=== PATIENT | male | born 1955 | race American Indian/Alaskan Native ===

== ENCOUNTER 2020-09-09 18:26 | Emergency (ER) | payer MEDICARE ==
[2020-09-09 20:37] VITALS: BP 162/104
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
[2020-09-09 21:39] LABS: Basophils # (Auto) 0.1 K/mm3 (0.0-0.1); Basophils % (Auto) 1.3 % (0.0-1.8); Eosinophils # (Auto) 0.2 K/mm3 (0.0-0.4); Eosinophils % (Auto) 2.5 % (0.0-4.3); Hematocrit 46.4 % (35.5-45.6); Hemoglobin 15.4 gm/dl (11.8-15.2); Lymphocytes # (Auto) 2.3 K/mm3 (1.2-5.4); Lymphocytes % (Auto) 34.2 % (13.4-35.0); Mean Corpuscular HGB Conc 33 % (32-34); Mean Corpuscular Volume 87 fl (84-94); Monocytes # (Auto) 0.5 K/mm3 (0.0-0.8); Monocytes % (Auto) 8.2 % (0.0-7.3); Platelet Count 352 K/mm3 (140-440); Red Blood Count 5.33 M/mm3 (3.65-5.03); Red Cell Distribution Width 13.7 % (13.2-15.2)
--- NOTE | 2020-09-09 21:39 | XRay Report ---
RIGHT FOOT 3 VIEW(S) INDICATION / CLINICAL INFORMATION: toe wound and foot wound COMPARISON: None available. FINDINGS: BONES / JOINT(S): No acute fracture or subluxation. Cortical margins of each of the phalanges appears intact without radiographic evidence of osteomyelitis. Consider further evaluation as warranted. Mil d diffuse degenerative changes. Small retrocalcaneal enthesophyte. SOFT TISSUES: Significant vascular calcifications. ADDITIONAL FINDINGS: None. Signer Name: Kunal Lopez MD Signed: 09/09/2020 9:34 PM Workstation Name: [id number]
[2020-09-09 21:58] LABS: BUN/Creatinine Ratio 16; Blood Urea Nitrogen 16 mg/dL (9-20); Hemolysis Index 15
[2020-09-09] MEDS ORDERED: ACETAMINOPHEN W/CODEINE 300-30 MG TAB PO ONE (23:06)
[2020-09-09] MEDS ORDERED: IBUPROFEN 600 MG TAB PO ONE (23:06)
== END 2020-09-09 23:42 | disposition home or self-care (01) ==
LOC: ED 18:26
DX: S91.301A Unspecified open wound, right foot, initial encounter (principal); E11.65 Type 2 diabetes mellitus with hyperglycemia; J45.909 Unspecified asthma, uncomplicated; I10 Essential (primary) hypertension; E78.00 Pure hypercholesterolemia, unspecified; F12.90 Cannabis use, unspecified, uncomplicated; Z87.891 Personal history of nicotine dependence; Z79.899 Other long term (current) drug therapy; Z98.890 Other specified postprocedural states; X58.XXXA Exposure to other specified factors, initial encounter; Y93.89 Activity, other specified; Y92.89 Other specified places as the place of occurrence of the external cause; Y99.8 Other external cause status
CPT/HCPCS: 36415; 80048; 85025

== ENCOUNTER 2020-12-05 17:56 | Inpatient (IN) | payer MEDICARE ==
[2020-12-05] MEDS ORDERED: fentaNYL 100 MCG/2 ML INJ IV ONE (18:39)
[2020-12-05] MEDS ORDERED: ONDANSETRON 4 MG/2 ML INJ IV ONE (18:39)
[2020-12-05] MEDS ORDERED: SODIUM CHLORIDE 0.9% 1000 ML 1,000 ML IV ONE (18:40)
--- NOTE | 2020-12-05 18:45 | Emergency Department Report ---
HPI - General Chief Complaint: Abdominal Pain Time Seen by Provider: 12/05/20 18:31 - HPI HPI: Room 5 The patient is a 65-year-old male present with chief complaint of abdominal pain. Patient states he awakened this morning with epigastric abdominal pain described as sharp and burning in nature. Patient denies radiation. Patient states he had 5 episodes of nausea and vomiting. Patient denies diarrhea or fever. Patient denies any sick contacts. Patient states last thing he had to eat before going to sleep last night was a popsicle. Patient currently gives his pain a score of 8.5/10 ED Past Medical Hx - Past Medical History Hx Hypertension: Yes Hx Heart Attack/AMI: Yes Hx Diabetes: Yes Additional medical history: High cholesterol - Surgical History Hx Open Heart Surgery: Yes Additional Surgical History: leg stent, right BKA, CABG - Family History Family history: no significant - Social History Smoking Status: Never Smoker Substance Use Type: None (Denies illicit drug use) - Medications Home Medications: Home Medications Medication Instructions Recorded Confirmed Last Taken Type Chlorhexidine Gluconate 5 ml TP BID #120 liquid 09/09/20 Unknown Rx [Antiseptic Skin Cleanser] Sulfamethoxazole/Trimethoprim 1 each PO BID #20 tablet 09/09/20 Unknown Rx [Bactrim DS TAB] cephALEXin [Keflex] 500 mg PO Q8HR #30 cap 09/09/20 Unknown Rx ED Review of Systems ROS: Stated complaint: ABD PAIN/NAUSEA/VOMITING Other details as noted in HPI Constitutional: denies: fever Eyes: denies: eye pain ENT: denies: throat pain Respiratory: no symptoms reported Cardiovascular: denies: chest pain Endocrine: no symptoms reported Gastrointestinal: abdominal pain, nausea, vomiting. denies: diarrhea Genitourinary: denies: dysuria Musculoskeletal: denies: back pain Neurological: denies: headache Physical Exam - Physical Exam Physical Exam: GENERAL: The patient is well-developed well-nourished male lying on stretcher not appearing to be in acute distress. [] HEENT: Normocephalic. Atraumatic. Extraocular motions are intact. Patient has moist mucous membranes. NECK: Supple. Trachea midline CHEST/LUNGS: Clear to auscultation. There is no respiratory distress noted. HEART/CARDIOVASCULAR: Regular. There is no tachycardia. There is no gallop rub or murmur. ABDOMEN: Abdomen is soft, with mild tenderness to palpation in the midepigastric region only. There is no rebound or guarding. Patient has normal bowel sounds. There is no abdominal distention. SKIN: There is no rash. There is no edema. There is no diaphoresis. NEURO: The patient is awake, alert, and oriented. The patient is cooperative. The patient has no focal neurologic deficits. The patient has normal speech MUSCULOSKELETAL: There is no evidence of acute injury. ED Course - Reevaluation(s) Reevaluation #1: 12/05/20 21:33 Patient states his epigastric pain has resolved - Consultations Consultation #1: 12/05/20 21:32 Cardiology paged 12/05/20 21:[address] Asif- recommends initiating heparin. Will follow ED Medical Decision Making - Lab Data Result diagrams: 12/05/20 18:42 12/05/20 18:42 Laboratory Tests 12/05/20 12/05/20 12/05/20 18:16 18:42 18:42 WBC 4.5 RBC 4.18 Hgb 11.9 Hct 35.1 L MCV 84 MCH 28 MCHC 34 RDW 17.0 H Plt Count 286 Lymph % (Auto) 24.5 [place] % (Auto) 9.6 H Eos % (Auto) 3.8 Baso % (Auto) 2.1 H Lymph # (Auto) 1.1 L [place] # (Auto) 0.4 Eos # (Auto) 0.2 Baso # (Auto) 0.1 Seg Neutrophils % 60.0 Seg Neutrophils # 2.7 VBG pH Sodium 137 Potassium 4.1 Chloride 97.8 L Carbon Dioxide 25 Anion Gap 18 BUN 23 H Creatinine 1.1 Estimated GFR > 60 BUN/Creatinine Ratio 21 Glucose 151 H POC Glucose 135 H Calcium 9.7 Total Bilirubin 1.10 AST 144 H ALT 51 Alkaline Phosphatase 175 H Total Creatine Kinase 58 CK-MB (CK-2) 2.3 CK-MB (CK-2) Rel Index 3.9 Troponin T 0.048 H Total Protein 7.2 Albumin 3.3 L Albumin/Globulin Ratio 0.8 Triglycerides 97 Cholesterol 213 H LDL Cholesterol Direct 149 H HDL Cholesterol 55 Cholesterol/HDL Ratio 3.87 Lipase 25 12/05/20 18:42 WBC RBC Hgb Hct MCV MCH MCHC RDW Plt Count Lymph % (Auto) [place] % (Auto) Eos % (Auto) Baso % (Auto) Lymph # (Auto) [place] # (Auto) Eos # (Auto) Baso # (Auto) Seg Neutrophils % Seg Neutrophils # VBG pH 7.395 Sodium Potassium Chloride Carbon Dioxide Anion Gap BUN Creatinine Estimated GFR BUN/Creatinine Ratio Glucose POC Glucose Calcium Total Bilirubin AST ALT Alkaline Phosphatase Total Creatine Kinase CK-MB (CK-2) CK-MB (CK-2) Rel Index Troponin T Total Protein Albumin Albumin/Globulin Ratio Triglycerides Cholesterol LDL Cholesterol Direct HDL Cholesterol Cholesterol/HDL Ratio Lipase - EKG Data -: EKG Interpreted by Me EKG shows normal: sinus rhythm Rate: normal - Radiology Data Radiology results: report reviewed (CT abdomen pelvis), image reviewed (CT abdomen pelvis) [facility] [address] [place] [address] Cat Scan Report Signed Patient: LISSA OTERO MR#: [id number] : 1955 Acct:[id number] Age/Sex: 65 / M ADM Date: 12/05/20 Loc: ED Attending Dr: Ordering Physician: DANIELLE CORNELIUS MD Date of Service: 12/05/20 Procedure(s): CT abdomen pelvis w con Accession Number(s): [id number] cc: DANIELLE CORNELIUS MD CT ABDOMEN AND PELVIS WITH CONTRAST INDICATION: Epigastric pain nausea vomiting CONTRAST: 100 cc Omnipaque 300 IV COMPARISON: None available. All CT scans at this location are performed using CT dose reduction for ALARA by means of automated exposure control. NOTE: Resolution is decreased and artifact is introduced by the patient's size. FINDINGS: Lung bases show mild atelectatic changes. Mild interstitial edema is also possible in the lung bases bilaterally. No areas of consolidation are seen. Coronary artery calcifications are noted. No pneumoperitoneum is seen. A small peripheral hypodensity with probable marginal enhancement likely is a small hemangioma anteriorly in the right lobe of the liver at the dome of the diaphragm. This measures 9 mm in diameter. 5 mm indeterminate lesion is seen in the posterior segment of the right lobe. I see no abnormalities of the gallbladder, bile ducts, pancreas, adrenals, or spleen. Small right renal cyst is noted.. No urinary obstructive changes are noted in the upper tracts though the urinary bladder is mildly distended. No evidence of bowel obstruction is seen. Appendix appears within normal limits. Mild colonic diverticulosis is seen without evidence of diverticulitis. Rectosigmoid colon is difficult to evaluate due to lack of distention as is the descending colon but no definite inflammation is noted. No free fluid is seen. No focal inflammatory changes are noted. No lymphadenopathy is seen. Stomach is distended with fluid. IMPRESSION: 1. No definite acute abnormalities are seen in the abdomen or pelvis 2. Possible mild bibasilar pulmonary edema 3. Small indeterminate lesion in the liver which probably is a hemangioma. Recommend follow-up. Signer Name: Torrey Duong MD Signed: 12/05/2020 8:32 PM Workstation Name: [id number] Transcribed By: GJ Dictated By: Torrey Duong MD Electronically Authenticated By: Torrey Duong MD Signed Date/Time: 12/05/202031 DD/ 25 TD/TT: Print Cancel - Differential Diagnosis Gastritis, peptic ulcer disease, pancreatitis, small bowel obstruction, ACS Critical care attestation.: If time is entered above; I have spent that time in minutes in the direct care of this critically ill patient, excluding procedure time. ED Disposition Clinical Impression: Acute abdominal pain, Anginal equivalent, Elevated troponin, Non-STEMI (non-ST elevated myocardial infarction) Disposition: 09 OP ADMIT IP TO THIS HOSP Is pt being admited?: Yes Does the pt Need Aspirin: Yes Condition: Fair Instructions: Angina, [id number] Referrals: JULIO PHELPS MD [Primary Care Provider] - 3-5 Days FLORENTIN ESPINO MD [Staff Physician] - 3-5 Days (Dr. Espino is a animal husbandman. Please follow-up with him for further evaluation and for follow-up with your possible liver hemangioma seen on today's CAT scan) Time of Disposition: 21:44 (Hospitalist paged (Dr Denney)) Heart Score - HEART Score History: Moderately suspicious EKG: Non-specific Age: 45-65 Risk factors: > 3 risk factors or hx of atherosclerotic disease Troponin: 1-3x normal limit HEART Score: 6 - EKG Read Time Time EKG Completed: 20:12 EKG Read Time: 20:15
[2020-12-05 19:04] LABS: Basophils # (Auto) 0.1 K/mm3 (0.0-0.1); Basophils % (Auto) 2.1 % (0.0-1.8); Eosinophils # (Auto) 0.2 K/mm3 (0.0-0.4); Eosinophils % (Auto) 3.8 % (0.0-4.3); Hematocrit 35.1 % (35.5-45.6); Hemoglobin 11.9 gm/dl (11.8-15.2); Lymphocytes # (Auto) 1.1 K/mm3 (1.2-5.4); Lymphocytes % (Auto) 24.5 % (13.4-35.0); Mean Corpuscular HGB Conc 34 % (32-34); Mean Corpuscular Volume 84 fl (84-94); Monocytes # (Auto) 0.4 K/mm3 (0.0-0.8); Monocytes % (Auto) 9.6 % (0.0-7.3); Platelet Count 286 K/mm3 (140-440); Red Blood Count 4.18 M/mm3 (3.65-5.03)
[2020-12-05 19:21] LABS: Creatine Kinase MB 2.3 ng/mL (0.0-4.0)
[2020-12-05 19:22] LABS: Alanine Aminotransferase 51 units/L (7-56); Albumin 3.3 g/dL (3.9-5); BUN/Creatinine Ratio 21; Blood Urea Nitrogen 23 mg/dL (9-20); Calcium 9.7 mg/dL (8.4-10.2); Hemolysis Index 72
[2020-12-05 19:34] LABS: Chol/HDL Ratio 3.87 %; HDL Cholesterol 55 mg/dL (40-59); LDL Cholesterol,Direct 149 mg/dL (50-130)
--- NOTE | 2020-12-05 20:37 | Cat Scan Report ---
CT ABDOMEN AND PELVIS WITH CONTRAST INDICATION: Epigastric pain nausea vomiting CONTRAST: 100 cc Omnipaque 300 IV COMPARISON: None available. All CT scans at this location are performed using CT dose reduction for ALARA by means of automated e xposure control. NOTE: Resolution is decreased and artifact is introduced by the patient's size. FINDINGS: Lung bases show mild atelectatic changes. Mild interstitial edema is also possible in the l rajani bases bilaterally. No areas of consolidation are seen. Coronary artery calcifications are noted. No pneumoperitoneum is seen. A small peripheral hypodensity with probable marginal enhancement likely is a small hemangioma anteriorly in the right lobe of the liver at the dome of the diaphragm. This m easures 9 mm in diameter. 5 mm indeterminate lesion is seen in the posterior segment of the right lob e. I see no abnormalities of the gallbladder, bile ducts, pancreas, adrenals, or spleen. Small right risa al cyst is noted.. No urinary obstructive changes are noted in the upper tracts though the urinary bl adder is mildly distended. No evidence of bowel obstruction is seen. Appendix appears within normal l imits. Mild colonic diverticulosis is seen without evidence of diverticulitis. Rectosigmoid colon is difficult to evaluate due to lack of distention as is the descending colon but no definite inflammati on is noted. No free fluid is seen. No focal inflammatory changes are noted. No lymphadenopathy is se en. Stomach is distended with fluid. IMPRESSION: 1. No definite acute abnormalities are seen in the abdomen or pelvis 2. Possible mild bibasilar pulmonary edema 3. Small indeterminate lesion in the liver which probably is a hemangioma. Recommend follow-up. Signer Name: Torrey Duong MD Signed: 12/05/2020 8:32 PM Workstation Name: [id number]
[2020-12-05] MEDS ORDERED: NITROGLYCERIN 2% OINT 1 GM TP ONE (21:32)
[2020-12-05] MEDS ORDERED: ASPIRIN 325 MG TAB PO ONE (21:32)
[2020-12-05] MEDS ORDERED: HEPARIN 10,000 UNITS/10 ML VIAL IV PRN (21:39)
[2020-12-05] MEDS ORDERED: HEPARIN 10,000 UNITS/10 ML VIAL IV ONE (21:39)
[2020-12-05 21:59] LABS: Hematocrit 32.7 % (35.5-45.6); Hemoglobin 11.2 gm/dl (11.8-15.2)
[2020-12-05 22:09] LABS: INR 0.96 (0.87-1.13)
[2020-12-05 22:10] LABS: Partial Thromboplastin Time 23.8 Sec. (24.2-36.6)
[2020-12-05] MEDS: HEPARIN/ 0.45% NACL DRIP 25,000 UNIT/500 ML BAG IV SCH (22:16)
[2020-12-05] MEDS ORDERED: MORPHINE 2 MG/1 ML INJ IV PRN (22:29)
[2020-12-05] MEDS ORDERED: MAGNESIUM HYDROXIDE (MOM) ORAL LIQD UDC PO PRN (22:29)
[2020-12-05] MEDS ORDERED: DEXTROSE 50% IN WATER (25GM) 50 ML SYRINGE IV PRN (22:29)
[2020-12-05] MEDS ORDERED: ACETAMINOPHEN 325 MG TAB PO PRN (22:29)
[2020-12-05] MEDS ORDERED: ONDANSETRON 4 MG/2 ML INJ IV PRN (22:29)
[2020-12-05] MEDS ORDERED: MORPHINE 4 MG/1 ML INJ IV PRN (22:29)
--- NOTE | 2020-12-05 22:38 | History and Physical Report ---
History of Present Illness Date of examination: 12/05/20 Date of admission: 12/05/2020 Chief complaint: Abdominal pain History of present illness: 65-year-old -[place] male with known history of coronary artery disease status post CABG in the past, hypertension, hyperlipidemia, diabetes mellitus presenting to the emergency room today complaining of epigastric abdominal pain which is sharp and burning in nature and has been ongoing for the past 24 hours. On a scale of 10 pain was about 8-9 over 10 in severity. He has had a some associated nausea and vomiting. Denies any fever or chills, no headache or dizziness, no diaphoresis. Denies any radiation and pain. No known relieving or exacerbating factor. Work-up in the emergency room today troponin was elevated at 0.048. EKG did not show any acute abnormality. CT of the abdomen reveals possible mild bibasilar pulmonary edema, no definite acute abnormality seen in the abdomen and pelvis. Small indeterminate lesion in the liver which is probably a hemangioma. Follow-up recommended. [employer] [facility] on-call was consulted by the ER physician and recommendation was to commence patient on heparin drip. Patient is being admitted with angina equivalent. Past History Past Medical History: CAD, diabetes, hypertension, hyperlipidemia Past Surgical History: CABG, Other (Right BKA) Social history: no significant social history Family history: no significant family history Medications and Allergies Allergies Allergy/AdvReac Type Severity Reaction Status Date / Time No Known Allergies Allergy Verified 09/09/20 23:06 Home Medications Medication Instructions Recorded Confirmed Last Taken Type Chlorhexidine Gluconate 5 ml TP BID #120 liquid 09/09/20 Unknown Rx [Antiseptic Skin Cleanser] Sulfamethoxazole/Trimethoprim 1 each PO BID #20 tablet 09/09/20 Unknown Rx [Bactrim DS TAB] cephALEXin [Keflex] 500 mg PO Q8HR #30 cap 09/09/20 Unknown Rx Active Meds: Active Medications Acetaminophen (Acetaminophen 325 Mg Tab) 650 mg PO Q4H PRN PRN Reason: Pain MILD(1-3)/Fever >100.5/AMBROCIO Dextrose (Dextrose 50% In Water (25gm) 50 Ml Syringe) 50 ml IV Q30MIN PRN; Protocol PRN Reason: Hypoglycemia Heparin Sodium (Porcine) (Heparin 10,000 Units/10 Ml Vial) 3,400 unit 40 unit/kg (3400 unit) IV Q6H PRN PRN Reason: Anti-Xa Assay<0.1 units/ml Heparin Sodium/Sodium Chloride (Heparin/ 0.45% Nacl-25,000 Unit/500 Ml) 25,000 unit in 500 mls @ 20 mls/hr IV TITRATE BRITTANY; Protocol Last Admin: 12/05/20 22:16 Dose: 1,000 units/hr, 20 mls/hr Documented by: Magnesium Hydroxide (Magnesium Hydroxide (Mom) Oral Liqd Udc) 30 ml PO Q4H PRN PRN Reason: Constipation Morphine Sulfate (Morphine 2 Mg/1 Ml Inj) 2 mg IV Q4H PRN PRN Reason: Pain, Moderate (4-6) Morphine Sulfate (Morphine 4 Mg/1 Ml Inj) 4 mg IV Q4H PRN PRN Reason: Pain , Severe (7-10) Ondansetron HCl (Ondansetron 4 Mg/2 Ml Inj) 4 mg IV Q8H PRN PRN Reason: Nausea And Vomiting Sodium Chloride (Sodium Chloride 0.9% 10 Ml Flush Syringe) 10 ml IV BID BRITTANY Sodium Chloride (Sodium Chloride 0.9% 10 Ml Flush Syringe) 10 ml IV PRN PRN PRN Reason: LINE FLUSH Review of Systems Constitutional: no fever, no chills Ears, nose, mouth and throat: no nasal congestion, no sore throat Cardiovascular: no chest pain, no palpitations Respiratory: no cough, no shortness of breath Gastrointestinal: abdominal pain (Epigastric), nausea, vomiting Genitourinary Male: no dysuria, no hematuria, no flank pain, no nocturia Musculoskeletal: no neck pain, no low back pain Integumentary: no rash, no pruritis Neurological: no headaches, no confusion Psychiatric: no anxiety, no depression Endocrine: no polyphagia, no polydipsia, no polyuria, no nocturia Exam - Constitutional Vitals: Temp Pulse Resp BP Pulse Ox 98.3 F 99 H 16 134/64 100 12/05/20 19:32 12/05/20 22:18 12/05/20 20:29 12/05/20 22:18 12/05/20 19:32 General appearance: Present: no acute distress, well-nourished, obese - EENT Eyes: Present: PERRL, EOM intact. Absent: scleral icterus ENT: hearing intact, clear oral mucosa, dentition normal - Neck Neck: Present: supple, normal ROM - Respiratory Respiratory effort: normal Respiratory: bilateral: CTA - Cardiovascular Rhythm: regular Heart Sounds: Present: S1 & S2. Absent: gallop, systolic murmur, diastolic murmur, rub, click - Extremities Extremities: no ischemia, pulses intact, No edema, normal temperature, normal color, Full ROM Peripheral Pulses: within normal limits - Abdominal General gastrointestinal: Present: soft, non-tender, non-distended, normal bowel sounds. Absent: mass - Integumentary Integumentary: Present: clear, warm, dry. Absent: rash - Musculoskeletal Musculoskeletal: strength equal bilaterally, other (Right below knee amputation. Mikayla still in place on the stump. No open wound.) - Psychiatric Psychiatric: appropriate mood/affect, intact judgment & insight, memory intact, cooperative - Neurologic Neurologic: CNII-XII intact, no focal deficits, moves all extremities HEART Score - HEART Score History: Moderately suspicious EKG: Non-specific Age: 45-65 Risk factors: > 3 risk factors or hx of atherosclerotic disease Troponin: Troponin T 0.048 ng/mL (0.00-0.029) H 12/05/20 18:42 Troponin: 1-3x normal limit HEART Score: 6 Results - Labs CBC & Chem 7: 12/05/20 21:42 12/05/20 18:42 Labs: Abnormal lab results 12/05/20 12/05/20 12/05/20 Range/Units 18:16 18:42 18:42 Hgb (11.8-15.2) gm/dl Hct 35.1 L (35.5-45.6) % RDW 17.0 H (13.2-15.2) % [place] % (Auto) 9.6 H (0.0-7.3) % Baso % (Auto) 2.1 H (0.0-1.8) % Lymph # (Auto) 1.1 L (1.2-5.4) K/mm3 APTT (24.2-36.6) Sec. Chloride 97.8 L (98-107) mmol/L BUN 23 H (9-20) mg/dL Glucose 151 H (75-100) mg/dL POC Glucose 135 H (70-105) mg/dL AST 144 H (5-40) units/L Alkaline Phosphatase 175 H (35-129) units/L Troponin T 0.048 H (0.00-0.029) ng/mL Albumin 3.3 L (3.9-5) g/dL Cholesterol 213 H (50-199) mg/dL LDL Cholesterol Direct 149 H (50-130) mg/dL 12/05/20 12/05/20 Range/Units 21:42 21:42 Hgb 11.2 L (11.8-15.2) gm/dl Hct 32.7 L (35.5-45.6) % RDW (13.2-15.2) % [place] % (Auto) (0.0-7.3) % Baso % (Auto) (0.0-1.8) % Lymph # (Auto) (1.2-5.4) K/mm3 APTT 23.8 L (24.2-36.6) Sec. Chloride (98-107) mmol/L BUN (9-20) mg/dL Glucose (75-100) mg/dL POC Glucose (70-105) mg/dL AST (5-40) units/L Alkaline Phosphatase (35-129) units/L Troponin T (0.00-0.029) ng/mL Albumin (3.9-5) g/dL Cholesterol (50-199) mg/dL LDL Cholesterol Direct (50-130) mg/dL Assessment and Plan - Patient Problems (1) Non-STEMI (non-ST elevated myocardial infarction) Current Visit: Yes Status: Acute Plan to address problem: Patient admitted and placed on telemetry. We will check serial cardiac enzymes. Patient commenced on aspirin, sublingual nitroglycerin and IV morphine as needed for chest pain. Meanwhile patient scheduled for echocardiogram and stress test. We will request cardiology evaluation and recommendation. (2) Diabetes mellitus Current Visit: Yes Status: Acute Plan to address problem: We will monitor Accu-Cheks closely. (3) Hypertension Current Visit: Yes Status: Acute Plan to address problem: We will resume routine home medications and monitor vital signs closely. (4) Hyperlipidemia Current Visit: Yes Status: Acute Plan to address problem: We will continue only routine home medications and monitor lipid profile. (5) DVT prophylaxis Current Visit: Yes Status: Acute Plan to address problem: Patient currently on anticoagulation with heparin. (6) Full code status Current Visit: Yes Status: Acute Plan to address problem: Patient is a full code.
[2020-12-06] MEDS ORDERED: traMADol 50 MG TAB PO PRN (00:23)
[2020-12-06] MEDS ORDERED: ACETAMINOPHEN 325 MG TAB PO PRN (00:23)
[2020-12-06] MEDS ORDERED: MORPHINE 2 MG/1 ML INJ IV PRN (00:23)
[2020-12-06] MEDS ORDERED: NITROGLYCERIN 0.4 MG TAB SUBL SL PRN (00:23)
[2020-12-06 02:28] LABS: Bilirubin,Urine NEG (Negative); Blood,Urine NEG (Negative); Color,Urine Yellow (Yellow); WBC,Urine < 1.0 /HPF (0.0-6.0)
[2020-12-06 05:10] LABS: Basophils % (Auto) 1.2 % (0.0-1.8); Eosinophils # (Auto) 0.1 K/mm3 (0.0-0.4); Eosinophils % (Auto) 3.6 % (0.0-4.3); Hematocrit 31.5 % (35.5-45.6); Hemoglobin 10.5 gm/dl (11.8-15.2); Lymphocytes # (Auto) 1.8 K/mm3 (1.2-5.4); Lymphocytes % (Auto) 47.5 % (13.4-35.0); Mean Corpuscular HGB Conc 33 % (32-34); Mean Corpuscular Volume 84 fl (84-94); Monocytes # (Auto) 0.3 K/mm3 (0.0-0.8); Monocytes % (Auto) 9.3 % (0.0-7.3); Platelet Count 257 K/mm3 (140-440); Red Blood Count 3.74 M/mm3 (3.65-5.03); Red Cell Distribution Width 17.3 % (13.2-15.2)
[2020-12-06 05:28] LABS: BUN/Creatinine Ratio 18; Blood Urea Nitrogen 20 mg/dL (9-20); Hemolysis Index 0
--- NOTE | 2020-12-06 08:34 | Progress Note ---
Assessment and Plan Assessment and plan: NSTEMI Diabetes mellitus type 2 Hypertension Hyperlipidemia 12/06/2020. Patient with epigastric pain that may be anginal equivalent. CT scan of the abdomen pelvis negative. However, patient does have elevated troponin. Continue to follow serial cardiac isoenzymes. Stress test and echocardiogram ordered. Await cardiology evaluation. History Interval history: No new issues overnight Hospitalist Physical - Constitutional Vitals: Temp Pulse Resp BP Pulse Ox 98.2 F 94 H 18 126/73 97 12/06/20 05:00 12/06/20 05:00 12/06/20 05:00 12/06/20 05:00 12/06/20 05:00 General appearance: Present: no acute distress, well-nourished, obese - EENT Eyes: Present: PERRL, EOM intact ENT: hearing intact, clear oral mucosa, dentition normal - Neck Neck: Present: supple, normal ROM - Respiratory Respiratory effort: normal Respiratory: bilateral: CTA - Cardiovascular Rhythm: regular Heart Sounds: Present: S1 & S2. Absent: gallop, rub - Extremities Extremities: no ischemia, No edema, Full ROM - Abdominal General gastrointestinal: soft, non-tender, non-distended, normal bowel sounds - Integumentary Integumentary: Present: clear, warm, dry - Neurologic Neurologic: CNII-XII intact, moves all extremities HEART Score - HEART Score EKG: Non-specific Age: 45-65 Risk factors: > 3 risk factors or hx of atherosclerotic disease Troponin: Troponin T 0.081 ng/mL (0.00-0.029) H D 12/06/20 04:43 Troponin: 1-3x normal limit Results - Labs CBC & Chem 7: 12/06/20 04:43 12/06/20 04:43 Labs: Laboratory Last Values WBC 3.7 K/mm3 (4.5-11.0) L 12/06/20 04:43 RBC 3.74 M/mm3 (3.65-5.03) 12/06/20 04:43 Hgb 10.5 gm/dl (11.8-15.2) L 12/06/20 04:43 Hct 31.5 % (35.5-45.6) L 12/06/20 04:43 MCV 84 fl (84-94) 12/06/20 04:43 MCH 28 pg (28-32) 12/06/20 04:43 MCHC 33 % (32-34) 12/06/20 04:43 RDW 17.3 % (13.2-15.2) H 12/06/20 04:43 Plt Count 257 K/mm3 (140-440) 12/06/20 04:43 Lymph % (Auto) 47.5 % (13.4-35.0) H 12/06/20 04:43 [place] % (Auto) 9.3 % (0.0-7.3) H 12/06/20 04:43 Eos % (Auto) 3.6 % (0.0-4.3) 12/06/20 04:43 Baso % (Auto) 1.2 % (0.0-1.8) 12/06/20 04:43 Lymph # (Auto) 1.8 K/mm3 (1.2-5.4) 12/06/20 04:43 [place] # (Auto) 0.3 K/mm3 (0.0-0.8) 12/06/20 04:43 Eos # (Auto) 0.1 K/mm3 (0.0-0.4) 12/06/20 04:43 Baso # (Auto) 0.0 K/mm3 (0.0-0.1) 12/06/20 04:43 Seg Neutrophils % 38.4 % (40.0-70.0) L 12/06/20 04:43 Seg Neutrophils # 1.4 K/mm3 (1.8-7.7) L 12/06/20 04:43 PT 13.8 Sec. (12.2-14.9) 12/06/20 04:43 INR 1.00 (0.87-1.13) 12/06/20 04:43 APTT 23.8 Sec. (24.2-36.6) L 12/05/20 21:42 Heparin Anti-Xa Level 0.67 U.I./ml (0.3-0.7) 12/06/20 04:43 VBG pH 7.395 (7.320-7.420) 12/05/20 18:42 Sodium 139 mmol/L (137-145) 12/06/20 04:43 Potassium 3.5 mmol/L (3.6-5.0) L 12/06/20 04:43 Chloride 103.1 mmol/L (98-107) 12/06/20 04:43 Carbon Dioxide 27 mmol/L (22-30) 12/06/20 04:43 Anion Gap 12 mmol/L 12/06/20 04:43 BUN 20 mg/dL (9-20) 12/06/20 04:43 Creatinine 1.1 mg/dL (0.8-1.3) 12/06/20 04:43 Estimated GFR > 60 ml/min 12/06/20 04:43 BUN/Creatinine Ratio 18 % 12/06/20 04:43 Glucose 93 mg/dL (75-100) 12/06/20 04:43 POC Glucose 68 mg/dL (70-105) L 12/06/20 07:43 Calcium 9.0 mg/dL (8.4-10.2) 12/06/20 04:43 Total Bilirubin 1.10 mg/dL (0.1-1.2) 12/05/20 18:42 AST 144 units/L (5-40) H 12/05/20 18:42 ALT 51 units/L (7-56) 12/05/20 18:42 Alkaline Phosphatase 175 units/L (35-129) H 12/05/20 18:42 Total Creatine Kinase 58 units/L (55-170) 12/05/20 18:42 CK-MB (CK-2) 2.3 ng/mL (0.0-4.0) 12/05/20 18:42 CK-MB (CK-2) Rel Index 3.9 (0-4) 12/05/20 18:42 Troponin T 0.081 ng/mL (0.00-0.029) H D 12/06/20 04:43 Total Protein 7.2 g/dL (6.3-8.2) 12/05/20 18:42 Albumin 3.3 g/dL (3.9-5) L 12/05/20 18:42 Albumin/Globulin Ratio 0.8 % 12/05/20 18:42 Triglycerides 97 mg/dL (2-149) 12/05/20 18:42 Cholesterol 213 mg/dL (50-199) H 12/05/20 18:42 LDL Cholesterol Direct 149 mg/dL (50-130) H 12/05/20 18:42 HDL Cholesterol 55 mg/dL (40-59) 12/05/20 18:42 Cholesterol/HDL Ratio 3.87 % 12/05/20 18:42 Lipase 25 units/L (13-60) 12/05/20 18:42 Urine Color Yellow (Yellow) 12/06/20 02:14 Urine Turbidity Clear (Clear) 12/06/20 02:14 Urine pH 7.0 (5.0-7.0) 12/06/20 02:14 Ur Specific [place] 1.023 (1.003-1.030) 12/06/20 02:14 Urine Protein 100 mg/dl mg/dL (Negative) 12/06/20 02:14 Urine Glucose (UA) Neg mg/dL (Negative) 12/06/20 02:14 Urine Ketones Neg mg/dL (Negative) 12/06/20 02:14 Urine Blood Neg (Negative) 12/06/20 02:14 Urine Nitrite Neg (Negative) 12/06/20 02:14 Urine Bilirubin Neg (Negative) 12/06/20 02:14 Urine Urobilinogen 4.0 mg/dL (<2.0) 12/06/20 02:14 Ur Leukocyte Esterase Neg (Negative) 12/06/20 02:14 Urine WBC (Auto) < 1.0 /HPF (0.0-6.0) 12/06/20 02:14 Urine RBC (Auto) 2.0 /HPF (0.0-6.0) 12/06/20 02:14 U Epithel Cells (Auto) < 1.0 /HPF (0-13.0) 12/06/20 02:14 Ramirez/IV: Voiding Method Urinal Active Medications - Current Medications Current Medications: Generic Name Dose Route Start Last Admin Trade Name Freq PRN Reason Stop Dose Admin Acetaminophen 650 mg 12/05/20 22:29 Acetaminophen 325 Mg Tab PO Q4H PRN Pain MILD(1-3)/Fever >100.5/AMBROCIO Aspirin 325 mg 12/07/20 10:00 Aspirin Ec 325 Mg Tab PO QDAY BRITTANY Dextrose 0 ml 12/05/20 22:29 Dextrose 50% In Water (25gm) 50 Ml Syringe IV Q30MIN PRN Hypoglycemia Protocol Heparin Sodium (Porcine) 3,400 unit 12/05/20 21:39 Heparin 10,000 Units/10 Ml Vial 40 unit/kg (3400 unit) IV Q6H PRN Anti-Xa Assay<0.1 units/ml Heparin Sodium/Sodium Chloride 25,000 unit in 500 mls @ 20 mls/hr 12/05/20 22:00 12/06/20 05:27 Heparin/ 0.45% Nacl-25,000 Unit/500 Ml IV 1,000 units/hr TITRATE BRITTANY 20 mls/hr Titration Protocol 1,000 UNITS/HR Magnesium Hydroxide 30 ml 12/05/20 22:29 Magnesium Hydroxide (Mom) Oral Liqd Udc PO Q4H PRN Constipation Morphine Sulfate 2 mg 12/06/20 00:23 Morphine 2 Mg/1 Ml Inj IV Q5MIN PRN Chest Pain Nitroglycerin 0.4 mg 12/06/20 00:23 Nitroglycerin 0.4 Mg Tab Subl SL Q5M PRN Chest Pain Ondansetron HCl 4 mg 12/05/20 22:29 Ondansetron 4 Mg/2 Ml Inj IV Q8H PRN Nausea And Vomiting Sodium Chloride 10 ml 12/06/20 10:00 Sodium Chloride 0.9% 10 Ml Flush Syringe IV BID BRITTANY Sodium Chloride 10 ml 12/05/20 22:29 Sodium Chloride 0.9% 10 Ml Flush Syringe IV PRN PRN LINE FLUSH Tramadol HCl 50 mg 12/06/20 00:23 Tramadol 50 Mg Tab PO Q6H PRN Pain, Moderate (4-6)
--- NOTE | 2020-12-06 09:34 | Consultation ---
History of Present Illness Consult date: 12/06/20 Consult reason: elevated troponin History of present illness: Patient seen in echo lab. 65M with PMH of CAD s/p CABG 2006, HTN, HLD, and DM is admitted with epigastric pain and elevated troponin. Patient reports epigastric pain that started after he ate some food. No association with activity. Currently, he is symptom free. His prior symptoms at time of CABG included SOB and fatigue. He has not been regularly following up with sports director and has not had cath/stress test in years. Denies smoking or drug use. Workup notable for elevated troponin 0.048, 0.081. CT abd/pelvis with bibasilar pulmonary edema but no other significant findings. He is currently on heparin infusion. Past History Past Medical History: CAD, diabetes, hypertension, hyperlipidemia Past Surgical History: CABG, Other (Right BKA) Social history: no significant social history Family history: no significant family history Medications and Allergies Allergies Allergy/AdvReac Type Severity Reaction Status Date / Time No Known Allergies Allergy Verified 09/09/20 23:06 Home Medications Medication Instructions Recorded Confirmed Last Taken Type Chlorhexidine Gluconate 5 ml TP BID #120 liquid 09/09/20 Unknown Rx [Antiseptic Skin Cleanser] Sulfamethoxazole/Trimethoprim 1 each PO BID #20 tablet 09/09/20 Unknown Rx [Bactrim DS TAB] cephALEXin [Keflex] 500 mg PO Q8HR #30 cap 09/09/20 Unknown Rx Active Meds: Active Medications Acetaminophen (Acetaminophen 325 Mg Tab) 650 mg PO Q4H PRN PRN Reason: Pain MILD(1-3)/Fever >100.5/AMBROCIO Aspirin (Aspirin Ec 325 Mg Tab) 325 mg PO QDAY BRITTANY Dextrose (Dextrose 50% In Water (25gm) 50 Ml Syringe) 0 ml IV Q30MIN PRN; Protocol PRN Reason: Hypoglycemia Heparin Sodium (Porcine) (Heparin 10,000 Units/10 Ml Vial) 3,400 unit 40 unit/kg (3400 unit) IV Q6H PRN PRN Reason: Anti-Xa Assay<0.1 units/ml Heparin Sodium/Sodium Chloride (Heparin/ 0.45% Nacl-25,000 Unit/500 Ml) 25,000 unit in 500 mls @ 20 mls/hr IV TITRATE BRITTANY; Protocol Last Titration: 12/06/20 05:27 Dose: 1,000 units/hr, 20 mls/hr Documented by: Magnesium Hydroxide (Magnesium Hydroxide (Mom) Oral Liqd Udc) 30 ml PO Q4H PRN PRN Reason: Constipation Morphine Sulfate (Morphine 2 Mg/1 Ml Inj) 2 mg IV Q5MIN PRN PRN Reason: Chest Pain Nitroglycerin (Nitroglycerin 0.4 Mg Tab Subl) 0.4 mg SL Q5M PRN PRN Reason: Chest Pain Ondansetron HCl (Ondansetron 4 Mg/2 Ml Inj) 4 mg IV Q8H PRN PRN Reason: Nausea And Vomiting Sodium Chloride (Sodium Chloride 0.9% 10 Ml Flush Syringe) 10 ml IV BID BRITTANY Sodium Chloride (Sodium Chloride 0.9% 10 Ml Flush Syringe) 10 ml IV PRN PRN PRN Reason: LINE FLUSH Tramadol HCl (Tramadol 50 Mg Tab) 50 mg PO Q6H PRN PRN Reason: Pain, Moderate (4-6) Physical Examination Vital Signs Pulse Resp BP Pulse Ox 85 17 159/84 98 12/05/20 19:00 12/05/20 19:00 12/05/20 19:00 12/05/20 19:00 Narrative exam: Gen-NAD, comfortable HEENT-atraumatic, normocephalic, no scleral icterus Neck-supple, no JVD CV-RRR, no murmurs Abd-soft/nt/nd Ext-warm to touch, no edema Skin-no obvious rash, midline sternal scar well healed Neuro-alert and oriented, no gross focal deficits Results 12/06/20 04:43 12/06/20 04:43 Cardiac Enzymes 12/05/20 Range/Units 18:42 AST 144 H (5-40) units/L CK-MB (CK-2) 2.3 (0.0-4.0) ng/mL Coagulation 12/05/20 12/06/20 Range/Units 21:42 04:43 PT 13.4 13.8 (12.2-14.9) Sec. INR 0.96 1.00 (0.87-1.13) APTT 23.8 L (24.2-36.6) Sec. Lipids 12/05/20 Range/Units 18:42 Triglycerides 97 (2-149) mg/dL Cholesterol 213 H (50-199) mg/dL HDL Cholesterol 55 (40-59) mg/dL Cholesterol/HDL Ratio 3.87 % CBC 12/05/20 12/05/20 12/06/20 Range/Units 18:42 21:42 04:43 WBC 4.5 3.7 L (4.5-11.0) K/mm3 RBC 4.18 3.74 (3.65-5.03) M/mm3 Hgb 11.9 11.2 L 10.5 L (11.8-15.2) gm/dl Hct 35.1 L 32.7 L 31.5 L (35.5-45.6) % Plt Count 286 252 257 (140-440) K/mm3 Lymph # (Auto) 1.1 L 1.8 (1.2-5.4) K/mm3 [place] # (Auto) 0.4 0.3 (0.0-0.8) K/mm3 Eos # (Auto) 0.2 0.1 (0.0-0.4) K/mm3 Baso # (Auto) 0.1 0.0 (0.0-0.1) K/mm3 Comprehensive Metabolic Panel 12/05/20 12/06/20 Range/Units 18:42 04:43 Sodium 137 139 (137-145) mmol/L Potassium 4.1 3.5 L (3.6-5.0) mmol/L Chloride 97.8 L 103.1 (98-107) mmol/L Carbon Dioxide 25 27 (22-30) mmol/L BUN 23 H 20 (9-20) mg/dL Creatinine 1.1 1.1 (0.8-1.3) mg/dL Glucose 151 H 93 (75-100) mg/dL Calcium 9.7 9.0 (8.4-10.2) mg/dL AST 144 H (5-40) units/L ALT 51 (7-56) units/L Alkaline Phosphatase 175 H (35-129) units/L Total Protein 7.2 (6.3-8.2) g/dL Albumin 3.3 L (3.9-5) g/dL EKG - SR, left axis, inferior and anteroseptal Q waves Assessment and Plan #NSTEMI #CAD s/p CABG 2006 #HTN #HLD #DM -Continue to trend troponin to peak. -Echo pending. -Continue heparin and ASA. -Will start metoprolol. -Unable to start statin given elevated LFTs. -Please keep NPO at MN. Will likely need cardiac cath tomorrow AM.
[2020-12-06] MEDS: METOPROLOL TARTRATE 25 MG TAB PO SCH ×2 (09:52→22:08)
[2020-12-06] MEDS ORDERED: SODIUM CHLORIDE 0.9% 500 ML 500 ML IV SCH (12:00)
[2020-12-06] MEDS: HEPARIN/ 0.45% NACL DRIP 25,000 UNIT/500 ML BAG IV SCH (12:16)
--- NOTE | 2020-12-06 14:31 | Electrocardiograph Report ---
[facility] Test Date: 2020-12-05 Test Time: 20:12:03 Pat Name: LISSA OTERO Department: Room: A467 1 Gender: M Machine Captain: ADRIEN : 1955 Requested By: DANIELLE CORNELIUS Order Number: [id number] Reading MD: Maximilian Perez Measurements Intervals [place] Rate: 91 P: 63 KS: 158 QRS: -72 QRSD: 92 T: 57 QT: 381 QTc: 469 Interpretive Statements Sinus rhythm Inferior infarct, old Anterolateral infarct, old No previous ECG available for comparison Electronically Signed On 12-06-2020 14:31:37 EDT by Maximilian Perez
--- NOTE | 2020-12-06 14:36 | Electrocardiograph Report ---
[facility] Test Date: 2020-12-06 Test Time: 11:30:53 Pat Name: LISSA OTERO Department: Room: A467 1 Gender: M Director Of Online Education: DESTINY : 1955 Requested By: GARETT PEREZ Order Number: [id number] Reading MD: Maximilian Perez Measurements Intervals [place] Rate: 86 P: 60 WA: 167 QRS: -45 QRSD: 88 T: 87 QT: 379 QTc: 454 Interpretive Statements Sinus rhythm Inferior infarct, old Anterior infarct, old Compared to ECG 12/05/2020 20:12:03 No significant changes Electronically Signed On 12-06-2020 14:35:56 EDT by Maximilian Perez
--- NOTE | 2020-12-06 14:39 | XRay Report ---
CHEST 1 VIEW 1400 INDICATION / CLINICAL INFORMATION: Pulmonary edema COMPARISON: None available. FINDINGS: SUPPORT DEVICES: None HEART / MEDIASTINUM: No significant abnormality. LUNGS / PLEURA: Mild right basilar atelectatic changes are seen. No pneumothorax. ADDITIONAL FINDINGS: No significant additional findings. IMPRESSION: No significant acute abnormality Signer Name: Torrey Duong MD Signed: 12/06/2020 2:34 PM Workstation Name: [id number]
[2020-12-06 15:39] LABS: Alanine Aminotransferase 53 units/L (7-56); Albumin 3.1 g/dL (3.9-5)
[2020-12-06 15:51] LABS: Bilirubin,Direct < 0.2 mg/dL (0-0.2)
[2020-12-07] MEDS: HEPARIN/ 0.45% NACL DRIP 25,000 UNIT/500 ML BAG IV SCH (00:07)
[2020-12-07 05:04] LABS: Hematocrit 31.1 % (35.5-45.6); Hemoglobin 10.4 gm/dl (11.8-15.2); Mean Corpuscular HGB Conc 34 % (32-34); Mean Corpuscular Volume 85 fl (84-94); Platelet Count 252 K/mm3 (140-440); Red Blood Count 3.68 M/mm3 (3.65-5.03); Red Cell Distribution Width 17.2 % (13.2-15.2)
[2020-12-07 05:29] LABS: BUN/Creatinine Ratio 15; Blood Urea Nitrogen 16 mg/dL (9-20); Calcium 8.7 mg/dL (8.4-10.2); Hemolysis Index 2
[2020-12-07 06:51] LABS: Anisocytosis 1+; Platelet Estimate Consistent w Auto; Total Cells Counted 100
--- NOTE | 2020-12-07 08:23 | Progress Note ---
Assessment and Plan Assessment and plan: NSTEMI Acute on chronic systolic heart failure. Coronary artery disease. Patient is s/p CABG 2006. Diabetes mellitus type 2 Hypertension Hyperlipidemia 12/06/2020. Patient with epigastric pain that may be anginal equivalent. CT scan of the abdomen pelvis negative. However, patient does have elevated troponin. Continue to follow serial cardiac isoenzymes. Stress test and echocardiogram ordered. Await cardiology evaluation. 12/07/2020. Cardiology opted for cardiac catheterization for ischemic evaluation this a.m. Echocardiogram reveals left ventricle moderately dilated with systolic function severely decreased. Mild concentric left ventricular hypertrophy. LVEF is 25 to 30%. Continue heparin drip. Continue aspirin and beta-delmi. Consider diuretics and ARB/HARISH per cardiology recommendations. History Interval history: No new issues overnight Hospitalist Physical - Constitutional Vitals: Temp Pulse Resp BP Pulse Ox 98.1 F 87 18 143/71 94 12/07/20 08:04 12/07/20 08:04 12/07/20 08:04 12/07/20 08:04 12/07/20 08:04 General appearance: Present: no acute distress, well-nourished, obese - EENT Eyes: Present: PERRL, EOM intact ENT: hearing intact, clear oral mucosa, dentition normal - Neck Neck: Present: supple, normal ROM - Respiratory Respiratory effort: normal Respiratory: bilateral: CTA - Cardiovascular Rhythm: regular Heart Sounds: Present: S1 & S2. Absent: gallop, rub - Extremities Extremities: no ischemia, No edema, Full ROM - Abdominal General gastrointestinal: soft, non-tender, non-distended, normal bowel sounds - Integumentary Integumentary: Present: clear, warm, dry - Neurologic Neurologic: CNII-XII intact, moves all extremities HEART Score - HEART Score EKG: Non-specific Age: 45-65 Risk factors: > 3 risk factors or hx of atherosclerotic disease Troponin: Troponin T 0.081 ng/mL (0.00-0.029) H D 12/06/20 04:43 Troponin: 1-3x normal limit Results - Labs CBC & Chem 7: 12/07/20 04:22 12/07/20 04:22 Labs: Laboratory Last Values WBC 3.6 K/mm3 (4.5-11.0) L 12/07/20 04:22 RBC 3.68 M/mm3 (3.65-5.03) 12/07/20 04:22 Hgb 10.4 gm/dl (11.8-15.2) L 12/07/20 04:22 Hct 31.1 % (35.5-45.6) L 12/07/20 04:22 MCV 85 fl (84-94) 12/07/20 04:22 MCH 28 pg (28-32) 12/07/20 04:22 MCHC 34 % (32-34) 12/07/20 04:22 RDW 17.2 % (13.2-15.2) H 12/07/20 04:22 Plt Count 252 K/mm3 (140-440) 12/07/20 04:22 Lymph % (Auto) 47.5 % (13.4-35.0) H 12/06/20 04:43 Story % (Auto) 9.3 % (0.0-7.3) H 12/06/20 04:43 Eos % (Auto) 3.6 % (0.0-4.3) 12/06/20 04:43 Baso % (Auto) 1.2 % (0.0-1.8) 12/06/20 04:43 Lymph # (Auto) 1.8 K/mm3 (1.2-5.4) 12/06/20 04:43 Story # (Auto) 0.3 K/mm3 (0.0-0.8) 12/06/20 04:43 Eos # (Auto) 0.1 K/mm3 (0.0-0.4) 12/06/20 04:43 Baso # (Auto) 0.0 K/mm3 (0.0-0.1) 12/06/20 04:43 Add Manual Diff Complete 12/07/20 04:22 Total Counted 100 12/07/20 04:22 Seg Neutrophils % Former Hand 12/07/20 04:22 Seg Neuts % (Manual) 43.0 % (40.0-70.0) 12/07/20 04:22 Lymphocytes % (Manual) 43.0 % (13.4-35.0) H 12/07/20 04:22 Monocytes % (Manual) 3.0 % (0.0-7.3) 12/07/20 04:22 Eosinophils % (Manual) 11.0 % (0.0-4.3) H 12/07/20 04:22 Nucleated RBC % Not Reportable 12/07/20 04:22 Seg Neutrophils # 1.4 K/mm3 (1.8-7.7) L 12/06/20 04:43 Seg Neutrophils # Man 1.5 K/mm3 (1.8-7.7) L 12/07/20 04:22 Band Neutrophils # 0.0 K/mm3 12/07/20 04:22 Lymphocytes # (Manual) 1.5 K/mm3 (1.2-5.4) 12/07/20 04:22 Abs React Lymphs (Man) 0.0 K/mm3 12/07/20 04:22 Monocytes # (Manual) 0.1 K/mm3 (0.0-0.8) 12/07/20 04:22 Eosinophils # (Manual) 0.4 K/mm3 (0.0-0.4) 12/07/20 04:22 Basophils # (Manual) 0.0 K/mm3 (0.0-0.1) 12/07/20 04:22 Metamyelocytes # 0.0 K/mm3 12/07/20 04:22 Myelocytes # 0.0 K/mm3 12/07/20 04:22 Promyelocytes # 0.0 K/mm3 12/07/20 04:22 Blast Cells # 0.0 K/mm3 12/07/20 04:22 WBC Morphology Not Reportable 12/07/20 04:22 Hypersegmented Neuts Not Reportable 12/07/20 04:22 Hyposegmented Neuts Not Reportable 12/07/20 04:22 Hypogranular Neuts Not Reportable 12/07/20 04:22 Smudge Cells Not Reportable 12/07/20 04:22 Toxic Granulation Not Reportable 12/07/20 04:22 Toxic Vacuolation Not Reportable 12/07/20 04:22 Dohle Bodies Not Reportable 12/07/20 04:22 Pelger-Huet Anomaly Not Reportable 12/07/20 04:22 Jacky Rods Not Reportable 12/07/20 04:22 Platelet Estimate Consistent w auto 12/07/20 04:22 Clumped Platelets Not Reportable 12/07/20 04:22 Plt Clumps, EDTA Not Reportable 12/07/20 04:22 Large Platelets Not Reportable 12/07/20 04:22 Giant Platelets Not Reportable 12/07/20 04:22 Platelet Satelliting Not Reportable 12/07/20 04:22 Plt Morphology Comment Not Reportable 12/07/20 04:22 RBC Morphology Not Reportable 12/07/20 04:22 Dimorphic RBCs Not Reportable 12/07/20 04:22 Polychromasia Not Reportable 12/07/20 04:22 Hypochromasia Not Reportable 12/07/20 04:22 Poikilocytosis Not Reportable 12/07/20 04:22 Anisocytosis 1+ 12/07/20 04:22 Microcytosis Not Reportable 12/07/20 04:22 Macrocytosis Not Reportable 12/07/20 04:22 Spherocytes Not Reportable 12/07/20 04:22 Pappenheimer Bodies Not Reportable 12/07/20 04:22 Sickle Cells Not Reportable 12/07/20 04:22 Target Cells Not Reportable 12/07/20 04:22 Tear Drop Cells Not Reportable 12/07/20 04:22 Ovalocytes Not Reportable 12/07/20 04:22 Helmet Cells Not Reportable 12/07/20 04:22 Torres-Dean Bodies Not Reportable 12/07/20 04:22 [place] Rings Not Reportable 12/07/20 04:22 Danielson Cells Not Reportable 12/07/20 04:22 Bite Cells Not Reportable 12/07/20 04:22 Crenated Cell Not Reportable 12/07/20 04:22 Elliptocytes Not Reportable 12/07/20 04:22 Acanthocytes (Spur) Not Reportable 12/07/20 04:22 Rouleaux Not Reportable 12/07/20 04:22 Hemoglobin C Crystals Not Reportable 12/07/20 04:22 Schistocytes Not Reportable 12/07/20 04:22 Malaria parasites Not Reportable 12/07/20 04:22 Jean-Claude Bodies Not Reportable 12/07/20 04:22 Hem Pathologist Commnt No 12/07/20 04:22 PT 13.8 Sec. (12.2-14.9) 12/06/20 04:43 INR 1.00 (0.87-1.13) 12/06/20 04:43 APTT 23.8 Sec. (24.2-36.6) L 12/05/20 21:42 Heparin Anti-Xa Level 0.60 U.I./ml (0.3-0.7) 12/06/20 17:48 VBG pH 7.395 (7.320-7.420) 12/05/20 18:42 Sodium 135 mmol/L (137-145) L 12/07/20 04:22 Potassium 3.8 mmol/L (3.6-5.0) 12/07/20 04:22 Chloride 102.1 mmol/L (98-107) 12/07/20 04:22 Carbon Dioxide 22 mmol/L (22-30) 12/07/20 04:22 Anion Gap 15 mmol/L 12/07/20 04:22 BUN 16 mg/dL (9-20) 12/07/20 04:22 Creatinine 1.1 mg/dL (0.8-1.3) 12/07/20 04:22 Estimated GFR > 60 ml/min 12/07/20 04:22 BUN/Creatinine Ratio 15 % 12/07/20 04:22 Glucose 211 mg/dL (75-100) H 12/07/20 04:22 POC Glucose 230 mg/dL (70-105) H 12/06/20 23:35 Calcium 8.7 mg/dL (8.4-10.2) 12/07/20 04:22 Total Bilirubin 0.30 mg/dL (0.1-1.2) 12/06/20 04:43 Direct Bilirubin < 0.2 mg/dL (0-0.2) 12/06/20 04:43 Indirect Bilirubin 0.1 mg/dL 12/06/20 04:43 AST 70 units/L (5-40) H 12/06/20 04:43 ALT 53 units/L (7-56) 12/06/20 04:43 Alkaline Phosphatase 165 units/L (35-129) H 12/06/20 04:43 Total Creatine Kinase 58 units/L (55-170) 12/05/20 18:42 CK-MB (CK-2) 2.3 ng/mL (0.0-4.0) 12/05/20 18:42 CK-MB (CK-2) Rel Index 3.9 (0-4) 12/05/20 18:42 Troponin T 0.081 ng/mL (0.00-0.029) H D 12/06/20 04:43 Total Protein 6.5 g/dL (6.3-8.2) 12/06/20 04:43 Albumin 3.1 g/dL (3.9-5) L 12/06/20 04:43 Albumin/Globulin Ratio 0.9 % 12/06/20 04:43 Triglycerides 97 mg/dL (2-149) 12/05/20 18:42 Cholesterol 213 mg/dL (50-199) H 12/05/20 18:42 LDL Cholesterol Direct 149 mg/dL (50-130) H 12/05/20 18:42 HDL Cholesterol 55 mg/dL (40-59) 12/05/20 18:42 Cholesterol/HDL Ratio 3.87 % 12/05/20 18:42 Lipase 28 units/L (13-60) 12/06/20 11:10 Urine Color Yellow (Yellow) 12/06/20 02:14 Urine Turbidity Clear (Clear) 12/06/20 02:14 Urine pH 7.0 (5.0-7.0) 12/06/20 02:14 Ur Specific [place] 1.023 (1.003-1.030) 12/06/20 02:14 Urine Protein 100 mg/dl mg/dL (Negative) 12/06/20 02:14 Urine Glucose (UA) Neg mg/dL (Negative) 12/06/20 02:14 Urine Ketones Neg mg/dL (Negative) 12/06/20 02:14 Urine Blood Neg (Negative) 12/06/20 02:14 Urine Nitrite Neg (Negative) 12/06/20 02:14 Urine Bilirubin Neg (Negative) 12/06/20 02:14 Urine Urobilinogen 4.0 mg/dL (<2.0) 12/06/20 02:14 Ur Leukocyte Esterase Neg (Negative) 12/06/20 02:14 Urine WBC (Auto) < 1.0 /HPF (0.0-6.0) 12/06/20 02:14 Urine RBC (Auto) 2.0 /HPF (0.0-6.0) 12/06/20 02:14 U Epithel Cells (Auto) < 1.0 /HPF (0-13.0) 12/06/20 02:14 Ramirez/IV: Voiding Method Urinal Active Medications - Current Medications Current Medications: Generic Name Dose Route Start Last Admin Trade Name Freq PRN Reason Stop Dose Admin Acetaminophen 650 mg 12/05/20 22:29 Acetaminophen 325 Mg Tab PO Q4H PRN Pain MILD(1-3)/Fever >100.5/AMBROCIO Aspirin 325 mg 12/07/20 10:00 Aspirin Ec 325 Mg Tab PO QDAY BRITTANY Dextrose 0 ml 12/05/20 22:29 Dextrose 50% In Water (25gm) 50 Ml Syringe IV Q30MIN PRN Hypoglycemia Protocol Heparin Sodium (Porcine) 3,400 unit 12/05/20 21:39 Heparin 10,000 Units/10 Ml Vial 40 unit/kg (3400 unit) IV Q6H PRN Anti-Xa Assay<0.1 units/ml Heparin Sodium/Sodium Chloride 25,000 unit in 500 mls @ 20 mls/hr 12/05/20 22:00 12/07/20 00:07 Heparin/ 0.45% Nacl-25,000 Unit/500 Ml IV 900 units/hr TITRATE BRITTANY 18 mls/hr Administration Protocol 1,000 UNITS/HR Magnesium Hydroxide 30 ml 12/05/20 22:29 Magnesium Hydroxide (Mom) Oral Liqd Udc PO Q4H PRN Constipation Metoprolol Tartrate 25 mg 12/06/20 10:00 12/06/20 22:08 Metoprolol Tartrate 25 Mg Tab PO 25 mg BID BRITTANY Administration Morphine Sulfate 2 mg 12/06/20 00:23 Morphine 2 Mg/1 Ml Inj IV Q5MIN PRN Chest Pain Nitroglycerin 0.4 mg 12/06/20 00:23 Nitroglycerin 0.4 Mg Tab Subl SL Q5M PRN Chest Pain Ondansetron HCl 4 mg 12/05/20 22:29 Ondansetron 4 Mg/2 Ml Inj IV Q8H PRN Nausea And Vomiting Sodium Chloride 10 ml 12/06/20 10:00 12/06/20 22:08 Sodium Chloride 0.9% 10 Ml Flush Syringe IV 10 ml BID BRITTANY Administration Sodium Chloride 10 ml 12/05/20 22:29 Sodium Chloride 0.9% 10 Ml Flush Syringe IV PRN PRN LINE FLUSH Tramadol HCl 50 mg 12/06/20 00:23 Tramadol 50 Mg Tab PO Q6H PRN Pain, Moderate (4-6) Nutrition/Malnutrition Assess - Dietary Evaluation Nutrition/Malnutrition Findings: Nutrition Notes Start: 12/06/20 11:54 Freq: Status: Active Protocol: Document 12/06/20 11:54 RAMA (Rec: 12/06/20 12:04 RAMA [id number]) Nutrition Notes Need for Assessment generated from: MD Order,Education Initial or Follow up Assessment Current Diagnosis Coronary Artery Disease, Diabetes,Hypertension, Hyperlipidemia Other Pertinent Diagnosis NSTEMI, R BKA Current Diet Cardiac Labs/Tests BG 185 Pertinent Medications Reviewed Height 5 ft Weight 81.36 kg Usual Body Weight 90.9 kg [place] Body Weight (kg) 48.18 BMI 35.0 Intake Prior to Admission Fair Weight change and time frame 10.5% wt loss in 1 month. Pt unsure of why he would have lost 21lbs in one month. Weight Status Obese Subjective/Other Information MD consult for diet education. Spoke with pt and son about limiting sodium and saturated fats. All questions answered. Pt reports decreased appetite for 3-4 days. Pt ate <50% of breakfast. Burn Absent Trauma Absent GI Symptoms None Current % PO Poor (25-49%) Minimum of two criteria No Interpretation of Weight Loss (severe) >5% in 1 month #1 Nutrition Diagnosis Inadequate oral intake Etiology acute illness As Evidenced by Signs and Symptoms pt with N/V for 3-4 days Is patient on ventilator? No Is Patient Ambulatory and/or Out of Bed No REE-([facility]-confined to bed) 1740.588 Kcal/Kg value to use for calculation 18 Approximate Energy Requirements Using 1464 kcal/Kg Calculation Used for Recommendations Kcal/kg Additional Notes Protein: (1-1.2g/kg AdjBW: 60kg) 60-73g Fluid: 1 ml/kcal Nutrition Intervention Change Diet Order: Add consistent cho Add Supplement/Snack (indicate name/kcal Glucerna BID /protein ) Provides kCal: 440 Provides Protein (gm) 20 Goal #1 Meet at least 75% of energy and protein needs via PO and ONS Anticipated Discharge Needs: Cardiac, consistent CHO Follow-Up By: 12/08/20 Additional Comments FU for intakes and ONS tolerance
[2020-12-07] MEDS ORDERED: ASPIRIN EC 325 MG TAB PO SCH (10:00)
--- NOTE | 2020-12-07 10:39 | Electrocardiograph Report ---
[facility] Test Date: 2020-12-07 Test Time: 06:36:54 Pat Name: LISSA OTERO Department: Room: A467 1 Gender: M [employer] Cl[employer] Man: DESTINY : 1955 Requested By: SEBASTIÁN ELY Order Number: [id number] Reading MD: Isaac Wynn Measurements Intervals [place] Rate: 85 P: 56 KS: 172 QRS: -34 QRSD: 88 T: 87 QT: 375 QTc: 446 Interpretive Statements Sinus rhythm Left axis deviation Anterior infarct, old Compared to ECG 12/06/2020 11:30:53 Left-axis deviation now present Myocardial infarct finding still present Electronically Signed On 12-07-2020 10:39:22 EDT by Isaac Wynn
[2020-12-07] MEDS: METOPROLOL TARTRATE 25 MG TAB PO SCH ×2 (11:21→22:21)
--- NOTE | 2020-12-07 12:20 | Progress Note ---
Assessment and Plan - Patient Problems (1) Coronary artery disease Current Visit: Yes Status: Acute Plan to address problem: Patient has history of coronary artery disease with 15-year-old coronary bypass, but current symptoms of abdominal pain associated with elevated liver enzymes suggest a GI origin to his complaints. CT scan of the abdomen reported possible edema at the bases of the lungs, but a chest x-ray ordered by me reports no pulmonary edema but instead atelectasis at the lung bases. We will hold off on invasive cardiac evaluation at this time, and trend the liver enzymes, recommend consider ultrasound assessment of the gallbladder and liver. After optimal GI work-up, we can contemplate further cardiac ischemic work-up as indicated. (2) Ischemic cardiomyopathy Current Visit: Yes Status: Acute Plan to address problem: The patient's echocardiogram shows left ventricular dysfunction, with ejection fraction 25 to 30%, chronicity uncertain in this patient with multivessel disease and 15-year-old bypass grafts. We will start guideline directed medical therapy, and contemplate further ischemic cardiac work-up as indicated after current GI pathology is resolved. Subjective Date of service: 12/07/20 Interval history: 65-year-old man who presented to the hospital with epigastric and upper abdominal pain nausea and vomiting. He reports that his symptoms were postprandial. Laboratory exam in the hospital revealed elevation of his liver transaminases, but an abdominal CT scan was reported negative. Part of his laboratory profile measured on arrival to the emergency room included troponin level that was mildly elevated at 0.04-0.08. This prompted a cardiac consultation. The patient had no chest pain, no shortness of breath, no palpitations and no lower extremity edema. ECG was normal sinus rhythm with an old anteroseptal myocardial infarction, and nonspecific intraventricular conduction delay but no acute ST or T wave changes. He does not have an extensive prior cardiac and vascular history. In 2006, he underwent coronary artery bypass at [facility] in [place], although he is unsure if was the three-way or quadruple bypass. Since then, his cardiac follow-up has been inconsistent. 2 months ago, he underwent below-knee amputation of the right leg at [facility] for progressive vascular disease, my review of his records from [place] did not show any significant preoperative cardiac assessment. At this time, the patient is comfortable on his bed in the medical floor, looks and feels better in no acute distress. His telemetry has shown a stable sinus rhythm, no dysrhythmias reported. Objective Vital Signs Temp Pulse Resp BP Pulse Ox 12/07/20 12:01 97.2 F L 78 18 140/68 97 12/07/20 08:04 98.1 F 87 18 143/71 94 12/07/20 04:57 98.1 F 83 20 132/69 98 12/06/20 22:08 89 142/65 12/06/20 21:20 98.2 F 89 20 142/65 97 12/06/20 16:03 98.4 F 85 20 143/70 94 12/06/20 12:22 18 - Physical Examination General: No Apparent Distress HEENT: Positive: PERRL Neck: Positive: neck supple Cardiac: Positive: Reg Rate and Rhythm Lungs: Positive: Decreased Breath Sounds Neuro: Positive: Grossly Intact Abdomen: Positive: Soft Skin: Positive: Clear Extremities: Present: Other (Status post right below-knee amputation). Absent: edema - Labs and Meds Cardiac Enzymes 12/06/20 Range/Units 04:43 AST 70 H (5-40) units/L CBC 12/07/20 Range/Units 04:22 WBC 3.6 L (4.5-11.0) K/mm3 RBC 3.68 (3.65-5.03) M/mm3 Hgb 10.4 L (11.8-15.2) gm/dl Hct 31.1 L (35.5-45.6) % Plt Count 252 (140-440) K/mm3 Comprehensive Metabolic Panel 12/06/20 12/07/20 Range/Units 04:43 04:22 Sodium 135 L (137-145) mmol/L Potassium 3.8 (3.6-5.0) mmol/L Chloride 102.1 (98-107) mmol/L Carbon Dioxide 22 (22-30) mmol/L BUN 16 (9-20) mg/dL Creatinine 1.1 (0.8-1.3) mg/dL Glucose 211 H (75-100) mg/dL Calcium 8.7 (8.4-10.2) mg/dL Direct Bilirubin < 0.2 (0-0.2) mg/dL Indirect Bilirubin 0.1 mg/dL AST 70 H (5-40) units/L ALT 53 (7-56) units/L Alkaline Phosphatase 165 H (35-129) units/L Total Protein 6.5 (6.3-8.2) g/dL Albumin 3.1 L (3.9-5) g/dL
[2020-12-07] MEDS: SPIRONOLACTONE 25 MG TAB PO SCH (17:14)
[2020-12-07] MEDS: LISINOPRIL 10 MG TAB PO SCH (17:14)
[2020-12-07] MEDS: ENOXAPARIN 40 MG/0.4 ML INJ SUB-Q SCH (22:22)
[2020-12-08 07:05] LABS: Basophils # (Auto) 0.1 K/mm3 (0.0-0.1); Basophils % (Auto) 1.5 % (0.0-1.8); Eosinophils # (Auto) 0.3 K/mm3 (0.0-0.4); Eosinophils % (Auto) 8.6 % (0.0-4.3); Hemoglobin 10.4 gm/dl (11.8-15.2); Lymphocytes # (Auto) 1.6 K/mm3 (1.2-5.4); Lymphocytes % (Auto) 44.6 % (13.4-35.0); Mean Corpuscular HGB Conc 33 % (32-34); Mean Corpuscular Volume 84 fl (84-94); Monocytes # (Auto) 0.3 K/mm3 (0.0-0.8); Monocytes % (Auto) 9.7 % (0.0-7.3); Platelet Count 261 K/mm3 (140-440); Red Blood Count 3.68 M/mm3 (3.65-5.03); Red Cell Distribution Width 17.1 % (13.2-15.2)
[2020-12-08 07:07] LABS: BUN/Creatinine Ratio 14; Blood Urea Nitrogen 11 mg/dL (9-20); Calcium 9.2 mg/dL (8.4-10.2); Hemolysis Index 4
[2020-12-08] MEDS ORDERED: REGADENOSON 0.4 MG/5 ML INJ IV ONE (07:25)
[2020-12-08 09:53] LABS: Alanine Aminotransferase 20 units/L (7-56)
[2020-12-08] MEDS: ENOXAPARIN 40 MG/0.4 ML INJ SUB-Q SCH ×2 (09:53→21:45)
[2020-12-08 10:04] LABS: Bilirubin,Direct < 0.2 mg/dL (0-0.2)
--- NOTE | 2020-12-08 10:13 | Ultrasound Report ---
ULTRASOUND ABDOMEN, LIMITED INDICATION / CLINICAL INFORMATION: Elevated LFT. COMPARISON: None available. FINDINGS: PANCREAS: Not well visualized LIVER: Several echogenic foci suggest calcified granulomas measuring 5 mm. Left hepatic lobe is not w ell seen GALLBLADDER: Gallbladder wall is upper limits of normal measuring 3 mm. No pericholecystic fluid BILE DUCTS: No significant abnormality. Common bile duct not well seen or measured FREE FLUID: None. ADDITIONAL FINDINGS: None. IMPRESSION: 1. No significant sonographic abnormality of the right upper quadrant. Signer Name: Yovany Henry MD Signed: 12/08/2020 10:09 AM Workstation Name: [id number]
--- NOTE | 2020-12-08 11:09 | Progress Note ---
Assessment and Plan Assessment and plan: NSTEMI Acute on chronic systolic heart failure. Coronary artery disease. Patient is s/p CABG 2006. Diabetes mellitus type 2 Hypertension Hyperlipidemia 12/06/2020. Patient with epigastric pain that may be anginal equivalent. CT scan of the abdomen pelvis negative. However, patient does have elevated troponin. Continue to follow serial cardiac isoenzymes. Stress test and echocardiogram ordered. Await cardiology evaluation. 12/07/2020. Cardiology opted for cardiac catheterization for ischemic evaluation this a.m. Echocardiogram reveals left ventricle moderately dilated with systolic function severely decreased. Mild concentric left ventricular hypertrophy. LVEF is 25 to 30%. Continue heparin drip. Continue aspirin and beta-delmi. Consider diuretics and ARB/HARISH per cardiology recommendations. 12/08/2020 Patient with NSTEMI. He was evaluated by cardiology and he recommends GI workup because of elevated LFT. I ordered US liver and gallbladder and consulted GI. Liver and Gall bladder Ultrasound unremarkable. LFTs back to normal today. History Interval history: Patient presented with epigastric abdominal pain Hospitalist Physical - Physical exam Narrative exam: Gen: Not in acute distress, obese, lying in bed HEENT: Normocephalic, atraumatic Neck : supple, no JVD Heart:S1 and S2 reg, no murmurs, rubs or gallop Lungs: clear to auscultation bilaterally, no wheeze Abd: Soft , NT, non distended, normal bowel sounds Ext: No edema, no clubbing, no cyanosis Neuro: Awake, alert, - Constitutional Vitals: Temp Pulse Resp BP Pulse Ox 98.1 F 89 20 175/92 97 12/08/20 07:51 12/08/20 07:51 12/08/20 07:51 12/08/20 07:51 12/08/20 07:51 General appearance: Present: no acute distress, well-nourished, obese HEART Score - HEART Score EKG: Non-specific Age: 45-65 Risk factors: > 3 risk factors or hx of atherosclerotic disease Troponin: Troponin T 0.081 ng/mL (0.00-0.029) H D 12/06/20 04:43 Troponin: 1-3x normal limit Results - Labs CBC & Chem 7: 12/08/20 04:51 12/08/20 04:51 Labs: Laboratory Last Values WBC 3.6 K/mm3 (4.5-11.0) L 12/08/20 04:51 RBC 3.68 M/mm3 (3.65-5.03) 12/08/20 04:51 Hgb 10.4 gm/dl (11.8-15.2) L 12/08/20 04:51 Hct 31.0 % (35.5-45.6) L 12/08/20 04:51 MCV 84 fl (84-94) 12/08/20 04:51 MCH 28 pg (28-32) 12/08/20 04:51 MCHC 33 % (32-34) 12/08/20 04:51 RDW 17.1 % (13.2-15.2) H 12/08/20 04:51 Plt Count 261 K/mm3 (140-440) 12/08/20 04:51 Lymph % (Auto) 44.6 % (13.4-35.0) H 12/08/20 04:51 Garrard % (Auto) 9.7 % (0.0-7.3) H 12/08/20 04:51 Eos % (Auto) 8.6 % (0.0-4.3) H 12/08/20 04:51 Baso % (Auto) 1.5 % (0.0-1.8) 12/08/20 04:51 Lymph # (Auto) 1.6 K/mm3 (1.2-5.4) 12/08/20 04:51 G[place]ard # (Auto) 0.3 K/mm3 (0.0-0.8) 12/08/20 04:51 Eos # (Auto) 0.3 K/mm3 (0.0-0.4) 12/08/20 04:51 Baso # (Auto) 0.1 K/mm3 (0.0-0.1) 12/08/20 04:51 Add Manual Diff Complete 12/07/20 04:22 Total Counted 100 12/07/20 04:22 Seg Neutrophils % 35.6 % (40.0-70.0) L 12/08/20 04:51 Seg Neuts % (Manual) 43.0 % (40.0-70.0) 12/07/20 04:22 Lymphocytes % (Manual) 43.0 % (13.4-35.0) H 12/07/20 04:22 Monocytes % (Manual) 3.0 % (0.0-7.3) 12/07/20 04:22 Eosinophils % (Manual) 11.0 % (0.0-4.3) H 12/07/20 04:22 Nucleated RBC % Not Reportable 12/07/20 04:22 Seg Neutrophils # 1.3 K/mm3 (1.8-7.7) L 12/08/20 04:51 Seg Neutrophils # Man 1.5 K/mm3 (1.8-7.7) L 12/07/20 04:22 Band Neutrophils # 0.0 K/mm3 12/07/20 04:22 Lymphocytes # (Manual) 1.5 K/mm3 (1.2-5.4) 12/07/20 04:22 Abs React Lymphs (Man) 0.0 K/mm3 12/07/20 04:22 Monocytes # (Manual) 0.1 K/mm3 (0.0-0.8) 12/07/20 04:22 Eosinophils # (Manual) 0.4 K/mm3 (0.0-0.4) 12/07/20 04:22 Basophils # (Manual) 0.0 K/mm3 (0.0-0.1) 12/07/20 04:22 Metamyelocytes # 0.0 K/mm3 12/07/20 04:22 Myelocytes # 0.0 K/mm3 12/07/20 04:22 Promyelocytes # 0.0 K/mm3 12/07/20 04:22 Blast Cells # 0.0 K/mm3 12/07/20 04:22 WBC Morphology Not Reportable 12/07/20 04:22 Hypersegmented Neuts Not Reportable 12/07/20 04:22 Hyposegmented Neuts Not Reportable 12/07/20 04:22 Hypogranular Neuts Not Reportable 12/07/20 04:22 Smudge Cells Not Reportable 12/07/20 04:22 Toxic Granulation Not Reportable 12/07/20 04:22 Toxic Vacuolation Not Reportable 12/07/20 04:22 Dohle Bodies Not Reportable 12/07/20 04:22 Pelger-Huet Anomaly Not Reportable 12/07/20 04:22 Jacky Rods Not Reportable 12/07/20 04:22 Platelet Estimate Consistent w auto 12/07/20 04:22 Clumped Platelets Not Reportable 12/07/20 04:22 Plt Clumps, EDTA Not Reportable 12/07/20 04:22 Large Platelets Not Reportable 12/07/20 04:22 Giant Platelets Not Reportable 12/07/20 04:22 Platelet Satelliting Not Reportable 12/07/20 04:22 Plt Morphology Comment Not Reportable 12/07/20 04:22 RBC Morphology Not Reportable 12/07/20 04:22 Dimorphic RBCs Not Reportable 12/07/20 04:22 Polychromasia Not Reportable 12/07/20 04:22 Hypochromasia Not Reportable 12/07/20 04:22 Poikilocytosis Not Reportable 12/07/20 04:22 Anisocytosis 1+ 12/07/20 04:22 Microcytosis Not Reportable 12/07/20 04:22 Macrocytosis Not Reportable 12/07/20 04:22 Spherocytes Not Reportable 12/07/20 04:22 Pappenheimer Bodies Not Reportable 12/07/20 04:22 Sickle Cells Not Reportable 12/07/20 04:22 Target Cells Not Reportable 12/07/20 04:22 Tear Drop Cells Not Reportable 12/07/20 04:22 Ovalocytes Not Reportable 12/07/20 04:22 Helmet Cells Not Reportable 12/07/20 04:22 [place] Bodies Not Reportable 12/07/20 04:22 Frakes Rings Not Reportable 12/07/20 04:22 Ron Cells Not Reportable 12/07/20 04:22 Bite Cells Not Reportable 12/07/20 04:22 Crenated Cell Not Reportable 12/07/20 04:22 Elliptocytes Not Reportable 12/07/20 04:22 Acanthocytes (Spur) Not Reportable 12/07/20 04:22 Rouleaux Not Reportable 12/07/20 04:22 Hemoglobin C Crystals Not Reportable 12/07/20 04:22 Schistocytes Not Reportable 12/07/20 04:22 Malaria parasites Not Reportable 12/07/20 04:22 Jean-Claude Bodies Not Reportable 12/07/20 04:22 Hem Pathologist Commnt No 12/07/20 04:22 PT 13.8 Sec. (12.2-14.9) 12/06/20 04:43 INR 1.00 (0.87-1.13) 12/06/20 04:43 APTT 23.8 Sec. (24.2-36.6) L 12/05/20 21:42 Heparin Anti-Xa Level 0.10 U.I./ml (0.3-0.7) L 12/07/20 19:53 VBG pH 7.395 (7.320-7.420) 12/05/20 18:42 Sodium 137 mmol/L (137-145) 12/08/20 04:51 Potassium 3.7 mmol/L (3.6-5.0) 12/08/20 04:51 Chloride 101.7 mmol/L (98-107) 12/08/20 04:51 Carbon Dioxide 24 mmol/L (22-30) 12/08/20 04:51 Anion Gap 15 mmol/L 12/08/20 04:51 BUN 11 mg/dL (9-20) 12/08/20 04:51 Creatinine 0.8 mg/dL (0.8-1.3) 12/08/20 04:51 Estimated GFR > 60 ml/min 12/08/20 04:51 BUN/Creatinine Ratio 14 % 12/08/20 04:51 Glucose 184 mg/dL (75-100) H 12/08/20 04:51 POC Glucose 203 mg/dL (70-105) H 12/08/20 07:52 Calcium 9.2 mg/dL (8.4-10.2) 12/08/20 04:51 Total Bilirubin 0.40 mg/dL (0.1-1.2) 12/08/20 Unknown Direct Bilirubin < 0.2 mg/dL (0-0.2) 12/08/20 Unknown Indirect Bilirubin 0.2 mg/dL 12/08/20 Unknown AST 14 units/L (5-40) 12/08/20 Unknown ALT 20 units/L (7-56) 12/08/20 Unknown Alkaline Phosphatase 114 units/L (35-129) 12/08/20 Unknown Total Creatine Kinase 58 units/L (55-170) 12/05/20 18:42 CK-MB (CK-2) 2.3 ng/mL (0.0-4.0) 12/05/20 18:42 CK-MB (CK-2) Rel Index 3.9 (0-4) 12/05/20 18:42 Troponin T 0.081 ng/mL (0.00-0.029) H D 12/06/20 04:43 Total Protein 6.3 g/dL (6.3-8.2) 12/08/20 Unknown Albumin 3.0 g/dL (3.9-5) L 12/08/20 Unknown Albumin/Globulin Ratio 0.9 % 12/08/20 Unknown Triglycerides 97 mg/dL (2-149) 12/05/20 18:42 Cholesterol 213 mg/dL (50-199) H 12/05/20 18:42 LDL Cholesterol Direct 149 mg/dL (50-130) H 12/05/20 18:42 HDL Cholesterol 55 mg/dL (40-59) 12/05/20 18:42 Cholesterol/HDL Ratio 3.87 % 12/05/20 18:42 Lipase 28 units/L (13-60) 12/06/20 11:10 Urine Color Yellow (Yellow) 12/06/20 02:14 Urine Turbidity Clear (Clear) 12/06/20 02:14 Urine pH 7.0 (5.0-7.0) 12/06/20 02:14 Ur Specific [place] 1.023 (1.003-1.030) 12/06/20 02:14 Urine Protein 100 mg/dl mg/dL (Negative) 12/06/20 02:14 Urine Glucose (UA) Neg mg/dL (Negative) 12/06/20 02:14 Urine Ketones Neg mg/dL (Negative) 12/06/20 02:14 Urine Blood Neg (Negative) 12/06/20 02:14 Urine Nitrite Neg (Negative) 12/06/20 02:14 Urine Bilirubin Neg (Negative) 12/06/20 02:14 Urine Urobilinogen 4.0 mg/dL (<2.0) 12/06/20 02:14 Ur Leukocyte Esterase Neg (Negative) 12/06/20 02:14 Urine WBC (Auto) < 1.0 /HPF (0.0-6.0) 12/06/20 02:14 Urine RBC (Auto) 2.0 /HPF (0.0-6.0) 12/06/20 02:14 U Epithel Cells (Auto) < 1.0 /HPF (0-13.0) 12/06/20 02:14 Ramirez/IV: Voiding Method Urinal Active Medications - Current Medications Current Medications: Generic Name Dose Route Start Last Admin Trade Name Freq PRN Reason Stop Dose Admin Acetaminophen 650 mg 12/05/20 22:29 Acetaminophen 325 Mg Tab PO Q4H PRN Pain MILD(1-3)/Fever >100.5/AMBROCIO Aspirin 81 mg 12/08/20 10:00 Aspirin Ec 81 Mg Tab PO QDAY BRITTANY Atorvastatin Calcium 80 mg 12/07/20 22:00 12/07/20 22:22 Atorvastatin 40 Mg Tab PO 80 mg QHS BRITTANY Administration Dextrose 0 ml 12/05/20 22:29 Dextrose 50% In Water (25gm) 50 Ml Syringe IV Q30MIN PRN Hypoglycemia Protocol Enoxaparin Sodium 40 mg 12/07/20 22:00 12/08/20 09:53 Enoxaparin 40 Mg/0.4 Ml Inj SUB-Q 40 mg BID BRITTANY Administration Protocol Lisinopril 10 mg 12/07/20 15:00 12/07/20 17:14 Lisinopril 10 Mg Tab PO 10 mg QDAY BRITTANY Administration Magnesium Hydroxide 30 ml 12/05/20 22:29 Magnesium Hydroxide (Mom) Oral Liqd Udc PO Q4H PRN Constipation Metoprolol Tartrate 25 mg 12/06/20 10:00 12/07/20 22:21 Metoprolol Tartrate 25 Mg Tab PO 25 mg BID BRITTANY Administration Morphine Sulfate 2 mg 12/06/20 00:23 Morphine 2 Mg/1 Ml Inj IV Q5MIN PRN Chest Pain Nitroglycerin 0.4 mg 12/06/20 00:23 Nitroglycerin 0.4 Mg Tab Subl SL Q5M PRN Chest Pain Ondansetron HCl 4 mg 12/05/20 22:29 Ondansetron 4 Mg/2 Ml Inj IV Q8H PRN Nausea And Vomiting Sodium Chloride 10 ml 12/06/20 10:00 12/07/20 22:23 Sodium Chloride 0.9% 10 Ml Flush Syringe IV 10 ml BID BRITTANY Administration Sodium Chloride 10 ml 12/05/20 22:29 Sodium Chloride 0.9% 10 Ml Flush Syringe IV PRN PRN LINE FLUSH Spironolactone 25 mg 12/07/20 15:00 12/07/20 17:14 Spironolactone 25 Mg Tab PO 25 mg QDAY BRITTANY Administration Tramadol HCl 50 mg 12/06/20 00:23 12/07/20 11:25 Tramadol 50 Mg Tab PO 50 mg Q6H PRN Administration Pain, Moderate (4-6) Nutrition/Malnutrition Assess - Dietary Evaluation Nutrition/Malnutrition Findings: Nutrition Notes Start: 12/06/20 11:54 Freq: Status: Active Protocol: Document 12/06/20 11:54 (Rec: 12/06/20 12:04 RAMA [id number]) Nutrition Notes Need for Assessment generated from: MD Order,Education Initial or Follow up Assessment Current Diagnosis Coronary Artery Disease, Diabetes,Hypertension, Hyperlipidemia Other Pertinent Diagnosis NSTEMI, R BKA Current Diet Cardiac Labs/Tests BG 185 Pertinent Medications Reviewed Height 5 ft Weight 81.36 kg Usual Body Weight 90.9 kg Eldred Body Weight (kg) 48.18 BMI 35.0 Intake Prior to Admission Fair Weight change and time frame 10.5% wt loss in 1 month. Pt unsure of why he would have lost 21lbs in one month. Weight Status Obese Subjective/Other Information MD consult for diet education. Spoke with pt and son about limiting sodium and saturated fats. All questions answered. Pt reports decreased appetite for 3-4 days. Pt ate <50% of breakfast. Burn Absent Trauma Absent GI Symptoms None Current % PO Poor (25-49%) Minimum of two criteria No Interpretation of Weight Loss (severe) >5% in 1 month #1 Nutrition Diagnosis Inadequate oral intake Etiology acute illness As Evidenced by Signs and Symptoms pt with N/V for 3-4 days Is patient on ventilator? No Is Patient Ambulatory and/or Out of Bed No REE-([facility]-confined to bed) 1740.588 Kcal/Kg value to use for calculation 18 Approximate Energy Requirements Using 1464 kcal/Kg Calculation Used for Recommendations Kcal/kg Additional Notes Protein: (1-1.2g/kg AdjBW: 60kg) 60-73g Fluid: 1 ml/kcal Nutrition Intervention Change Diet Order: Add consistent cho Add Supplement/Snack (indicate name/kcal Glucerna BID /protein ) Provides kCal: 440 Provides Protein (gm) 20 Goal #1 Meet at least 75% of energy and protein needs via PO and ONS Anticipated Discharge Needs: Cardiac, consistent CHO Follow-Up By: 12/08/20 Additional Comments FU for intakes and ONS tolerance
--- NOTE | 2020-12-08 11:11 | Progress Note ---
Assessment and Plan - Patient Problems (1) Coronary artery disease Current Visit: Yes Status: Acute Plan to address problem: We will proceed with a Lexiscan thallium stress test for further assessment of underlying coronary artery disease. (2) Ischemic cardiomyopathy Current Visit: Yes Status: Acute Plan to address problem: Continue guideline directed medical therapy for what appears to be a chronic ischemic cardiomyopathy. Subjective Date of service: 12/08/20 Interval history: No new cardiac complaints, the patient had a right upper quadrant ultrasound, and repeat liver function tests show a resolving transaminitis. He is scheduled to undergo a Lexiscan thallium stress test for further cardiac assessment. Objective Vital Signs Temp Pulse Resp BP Pulse Ox 12/08/20 07:51 98.1 F 89 20 175/92 97 12/08/20 05:39 98.7 F 70 18 110/58 96 12/08/20 05:28 97.9 F 83 18 188/86 100 12/08/20 00:11 98 12/07/20 23:24 98.3 F 87 18 153/71 95 12/07/20 20:15 79 12/07/20 19:41 98.2 F 79 18 148/75 97 12/07/20 15:40 98.0 F 80 18 127/63 98 12/07/20 12:01 97.2 F L 78 18 140/68 97 12/07/20 12:00 20 96 - Physical Examination General: No Apparent Distress HEENT: Positive: PERRL Neck: Positive: neck supple Cardiac: Positive: Reg Rate and Rhythm Lungs: Positive: Decreased Breath Sounds Neuro: Positive: Grossly Intact Abdomen: Positive: Soft Skin: Positive: Clear Extremities: Present: Other (Status post right below-knee amputation). Absent: edema - Labs and Meds Cardiac Enzymes 12/08/20 Range/Units Unknown AST 14 (5-40) units/L CBC 12/08/20 Range/Units 04:51 WBC 3.6 L (4.5-11.0) K/mm3 RBC 3.68 (3.65-5.03) M/mm3 Hgb 10.4 L (11.8-15.2) gm/dl Hct 31.0 L (35.5-45.6) % Plt Count 261 (140-440) K/mm3 Lymph # (Auto) 1.6 (1.2-5.4) K/mm3 [place] # (Auto) 0.3 (0.0-0.8) K/mm3 Eos # (Auto) 0.3 (0.0-0.4) K/mm3 Baso # (Auto) 0.1 (0.0-0.1) K/mm3 Comprehensive Metabolic Panel 12/08/20 12/08/20 Range/Units 04:51 Unknown Sodium 137 (137-145) mmol/L Potassium 3.7 (3.6-5.0) mmol/L Chloride 101.7 (98-107) mmol/L Carbon Dioxide 24 (22-30) mmol/L BUN 11 (9-20) mg/dL Creatinine 0.8 (0.8-1.3) mg/dL Glucose 184 H (75-100) mg/dL Calcium 9.2 (8.4-10.2) mg/dL Direct Bilirubin < 0.2 (0-0.2) mg/dL Indirect Bilirubin 0.2 mg/dL AST 14 (5-40) units/L ALT 20 (7-56) units/L Alkaline Phosphatase 114 (35-129) units/L Total Protein 6.3 (6.3-8.2) g/dL Albumin 3.0 L (3.9-5) g/dL
--- NOTE | 2020-12-08 12:36 | Nuclear Medicine Report ---
APPROVED REPORT Exam: Nuclear Stress Test Indication: Chest pain Patient Location: [address] [place] [address] Room #: 467 Ht: 5 ft 0 in Wt: 179 lbs BSA: 1.78 m2 HR: 77 bpmBP: 150/72 mmHgBMI: 34.95 Rhythm: Sinus rhythm Stress Test Details Stress Test: Pharmacologic stress testing performed using 0.4 mg of regadenoson per 5 mL given IV over 10 seconds. HR Resting HR: 77 bpm Max HR Achieved: 104 bpm Max Heart Rate (APMHR): 155 bpm Target HR (85% APMHR): 131 bpm % of APMHR: 67 Recovery HR: 98 bpm HR response to stress: Normal HR response to stress BP Resting BP: 150/72 mmHg Max BP: 150/72 mmHg Recovery BP: 95/71 mmHg ECG Resting ECG: Sinus Rhythm Stress ECG: Sinus Rhythm ST Change: None Arrhythmia: None Recovery ECG: Sinus Rhythm Recovery ST Change: None Recovery Arrhythmia: None Clinical Reason for Termination: Completed protocol Stress Symptoms: None Stress ECG Conclusion No chest pain and no ST changes with pharmacologic stress, myocardial perfusion images are pending for final test interpretation. NM EXAM: Myocardial Perfusion REST/STRESS Imaging Protocol: Rest Tc-99m/Stress Tc-99m 1 day Resting Data Rest SPECT myocardial perfusion imaging was performed in supine position 45 minutes following the intravenous injection of 10 mCi of Tc-99m Myoview. Time of rest injection: 0900 Pharmacologic Stress Pharmacologic stress test was performed by injecting Regadenoson 0.4 mg IV push followed by the intravenous injection of 28 mCi of Tc-99m Myoview. Time of stress injection: 1124 Gated Stress SPECT was performed 30 minutes after stress injection. The images were gated to evaluate regional wall motion and calculate left ventricular ejection fraction. Study Data TID = 0.94. Perfusion Nuclear Conclusion ECG Findings: negative for ischemia Clinical Findings: negative for ischemia Nuclear Findings: negative for ischemia Left Ventricular Function: abnormal Risk Study: moderate Myocardial perfusion study shows a mildly dilated left ventricle with at least mild left ventricular systolic dysfunction, ejection fraction 41%. There is a small to medium sized fixed basal inferior defect consistent with a prior infarct. There is minimal to no significant reversibility, clinical correlation is recommended. Conclusion No chest pain and no ST changes with pharmacologic stress, myocardial perfusion images are pending for final test interpretation.
[2020-12-08] MEDS ORDERED: DEXTROSE 50% IN WATER (25GM) 50 ML SYRINGE IV PRN (14:34)
--- NOTE | 2020-12-08 14:43 | Event Note ---
Date: 12/08/20 Full GI consult dictated - LFT's ordered today nl - denies GI complaints - ultrasound benign - doubt GI/Liver issues, will sign off, call if needed
[2020-12-08] MEDS: LISINOPRIL 10 MG TAB PO SCH (14:44)
[2020-12-08] MEDS: ASPIRIN EC 81 MG TAB PO SCH (14:45)
[2020-12-08] MEDS: METOPROLOL TARTRATE 25 MG TAB PO SCH ×2 (14:45→21:46)
[2020-12-08] MEDS: SPIRONOLACTONE 25 MG TAB PO SCH (14:45)
[2020-12-08] MEDS: INSULIN LISPRO 100 UNIT/ML SUB-Q SCH ×2 (18:49→21:49)
--- NOTE | 2020-12-09 05:09 | Consultation ---
DATE OF CONSULTATION: 12/08/2020 REFERRING PHYSICIAN: Itz Whitfield M.D. INDICATIONS: 1. Epigastric pain. 2. Increased liver function tests. HISTORY OF PRESENT ILLNESS: The patient is a 65-year-old black male with history of coronary artery disease, status post CABG, hypertension, high cholesterol, and diabetes. The patient presented to the Emergency Room with epigastric upper abdominal pain. He reports this has been ongoing for 24 hours. He reports some mild nausea without vomiting. Denies any reflux. The patient denies any other specific complaints. The patient was evaluated and noted to have increased liver function tests and GI is consulted to aid in management. The patient had a CT scan, which showed no significant GI pathology. The patient denies any history of known liver disease. No other specific complaints. PAST MEDICAL HISTORY: 1. Coronary artery disease, status post CABG. 2. Hypertension. 3. High cholesterol. MEDICATIONS: Reviewed and updated in chart. ALLERGIES: No known drug allergies. SOCIAL HISTORY: Denies alcohol, tobacco or drug abuse. FAMILY HISTORY: Negative for colon cancer, IBD, or liver disease. REVIEW OF SYSTEMS: GENERAL: Reports mild weakness. HEENT: No visual complaints or tinnitus. PULMONARY: No shortness of breath ____ chest pain. GASTROINTESTINAL: Reports abdominal pain All point of 10-point review of systems otherwise negative. PHYSICAL EXAMINATION: VITAL SIGNS: Temperature of 98.7, pulse 77, respirations 18, blood pressure 125/63. GENERAL: Fairly nourished male, in no acute distress. HEENT: Pupils round, reactive. PULMONARY: Clear to auscultation bilaterally. CARDIOVASCULAR: Regular rate and rhythm. Normal S1, S2. ABDOMEN: Soft. SKIN: No obvious rashes. LABORATORY DATA: Pertinent for white count of 3.6, hemoglobin and hematocrit 10.4/31.0, and platelet count of 261. Chem-7 within normal limits. LFTs today within normal limits. The patient's initial LFTs on admission pertinent for AST and ALT of 144 and 51 with otherwise normal profile. IMAGING: CT scan of abdomen and pelvis with contrast on 12/05/2020 showed no significant GI pathology and there is a question of possible pulmonary edema. ASSESSMENT : A 65-year-old male with history of coronary artery disease, status post CABG, now with epigastric like chest pain. GI was consulted because of increased liver function tests with a question of whether or not this may be of a liver pathology. The patient denies any known history of liver disease and his liver function test on repeat today is normalized. Doubt any underlying liver disease and doubt symptoms are GI related. PLAN: 1. Would proceed with cardiac evaluation as outlined. 2. Follow LFTs. 3. Would start diet and advance as tolerated. 4. No need for further GI input at this time, we will sign off, call if needed. TID: [id number] RECEIPT: [id number] CHIP/CHRISTY/DARIAN
[2020-12-09 06:31] LABS: Hematocrit 33.5 % (35.5-45.6); Hemoglobin 11.1 gm/dl (11.8-15.2)
[2020-12-09] MEDS: INSULIN LISPRO 100 UNIT/ML SUB-Q SCH ×4 (07:45→22:50)
--- NOTE | 2020-12-09 08:51 | Progress Note ---
Assessment and Plan Mildly elevated troponin LVEF 25-30% by echo. no reversible ischemia by MPI this admission. Hx of Ischemic cardiomyopathy Hx of CAD with remote CABG Epigastric and upper abdominal pain associated with nausea and vomiting. Elevated liver transaminases -resolved abdominal CT scan was negative. PVD s/p right below-knee amputation Continue medical therapy for dilated cardiomyopathy and coronary artery disease. Stable cardiac chowdhury for discharge. Will follow up in our office in 5-7 days. Subjective Date of service: 12/09/20 Interval history: Resting in bed comfortably. Denies chest pain. No plans for GI workup. Objective Vital Signs Temp Pulse Resp BP Pulse Ox 12/09/20 07:44 98.3 F 91 H 20 166/85 97 12/09/20 05:53 98 12/09/20 03:36 98.4 F 85 16 107/52 97 12/08/20 23:17 98.8 F 87 16 134/73 99 12/08/20 20:40 87 12/08/20 19:11 97.2 F L 83 16 165/84 99 12/08/20 16:17 98.7 F 81 20 157/74 99 12/08/20 16:00 81 12/08/20 14:45 86 151/78 12/08/20 14:23 87 18 151/78 97 12/08/20 14:00 98 12/08/20 11:27 140/64 12/08/20 11:26 141/63 12/08/20 11:25 95/71 12/08/20 11:23 125/63 12/08/20 11:22 150/61 12/08/20 11:04 150/72 - Physical Examination General: No Apparent Distress HEENT: Positive: PERRL Neck: Positive: neck supple Cardiac: Positive: Reg Rate and Rhythm Lungs: Positive: Decreased Breath Sounds Neuro: Positive: Grossly Intact Abdomen: Positive: Soft Skin: Positive: Clear Extremities: Present: Other (Status post right below-knee amputation). Absent: edema - Labs and Meds Cardiac Enzymes 12/08/20 Range/Units Unknown AST 14 (5-40) units/L CBC 12/09/20 Range/Units 05:11 Hgb 11.1 L (11.8-15.2) gm/dl Hct 33.5 L (35.5-45.6) % Plt Count 241 (140-440) K/mm3 Comprehensive Metabolic Panel 12/08/20 Range/Units Unknown Direct Bilirubin < 0.2 (0-0.2) mg/dL Indirect Bilirubin 0.2 mg/dL AST 14 (5-40) units/L ALT 20 (7-56) units/L Alkaline Phosphatase 114 (35-129) units/L Total Protein 6.3 (6.3-8.2) g/dL Albumin 3.0 L (3.9-5) g/dL
[2020-12-09] MEDS: METOPROLOL TARTRATE 25 MG TAB PO SCH ×2 (10:22→22:49)
[2020-12-09] MEDS: LISINOPRIL 10 MG TAB PO SCH (10:22)
[2020-12-09] MEDS: SPIRONOLACTONE 25 MG TAB PO SCH (10:22)
[2020-12-09] MEDS: ENOXAPARIN 40 MG/0.4 ML INJ SUB-Q SCH ×2 (10:22→22:48)
[2020-12-09] MEDS: ASPIRIN EC 81 MG TAB PO SCH (10:22)
--- NOTE | 2020-12-09 11:28 | Event Note ---
Date: 12/09/20 Patient medically stable for discharge
--- NOTE | 2020-12-09 14:06 | Progress Note ---
Assessment and Plan Assessment and plan: Elevated Troponin Acute on chronic systolic heart failure. Coronary artery disease. Patient is s/p CABG 2006. Diabetes mellitus type 2 Hypertension Hyperlipidemia 12/06/2020. Patient with epigastric pain that may be anginal equivalent. CT scan of the abdomen pelvis negative. However, patient does have elevated troponin. Continue to follow serial cardiac isoenzymes. Stress test and echocardiogram ordered. Await cardiology evaluation. 12/07/2020. Cardiology opted for cardiac catheterization for ischemic evaluation this a.m. Echocardiogram reveals left ventricle moderately dilated with s ystolic function severely decreased. Mild concentric left ventricular hypertrophy. LVEF is 25 to 30%. Continue heparin drip. Continue aspirin and beta-dlemi. Consider diuretics and ARB/HARISH per cardiology recommendations. 12/08/2020 Patient with elevated Troponin. He was evaluated by cardiology and he recommends GI workup because of elevated LFT. I ordered US liver and gallbladder and consulted GI. Liver and Gall bladder Ultrasound unremarkable. LFTs back to normal today. 12/09/2020 Patient with elevated Troponin. GI workup was negative, so stress test done by cardiology and did not show significant ischemia. Patient does not have NSTEMI. Ruled out. OK to discharge home from cardiology. PT had requested acute Rehab placement but patient states he wants to go home. Discharge order placed. History Interval history: Patient presented with epigastric abdominal pain Found to have elevated Troponin Hospitalist Physical - Physical exam Narrative exam: Gen: Not in acute distress, obese, lying in bed HEENT: Normocephalic, atraumatic Neck : supple, no JVD Heart:S1 and S2 reg, no murmurs, rubs or gallop Lungs: clear to auscultation bilaterally, no wheeze Abd: Soft , non tender, non distended, normal bowel sounds Ext: No edema, no clubbing, no cyanosis Neuro: Awake, alert, - Constitutional Vitals: Temp Pulse Resp BP Pulse Ox 97.6 F 71 18 131/68 98 12/09/20 12:11 12/09/20 12:11 12/09/20 12:11 12/09/20 12:11 12/09/20 12:11 General appearance: Present: no acute distress, obese HEART Score - HEART Score EKG: Non-specific Age: 45-65 Risk factors: > 3 risk factors or hx of atherosclerotic disease Troponin: Troponin T 0.081 ng/mL (0.00-0.029) H D 12/06/20 04:43 Troponin: 1-3x normal limit Results - Labs CBC & Chem 7: 12/09/20 05:11 12/08/20 04:51 Labs: Laboratory Last Values WBC 3.6 K/mm3 (4.5-11.0) L 12/08/20 04:51 RBC 3.68 M/mm3 (3.65-5.03) 12/08/20 04:51 Hgb 11.1 gm/dl (11.8-15.2) L 12/09/20 05:11 Hct 33.5 % (35.5-45.6) L 12/09/20 05:11 MCV 84 fl (84-94) 12/08/20 04:51 MCH 28 pg (28-32) 12/08/20 04:51 MCHC 33 % (32-34) 12/08/20 04:51 RDW 17.1 % (13.2-15.2) H 12/08/20 04:51 Plt Count 241 K/mm3 (140-440) 12/09/20 05:11 Lymph % (Auto) 44.6 % (13.4-35.0) H 12/08/20 04:51 [place] % (Auto) 9.7 % (0.0-7.3) H 12/08/20 04:51 Eos % (Auto) 8.6 % (0.0-4.3) H 12/08/20 04:51 Baso % (Auto) 1.5 % (0.0-1.8) 12/08/20 04:51 Lymph # (Auto) 1.6 K/mm3 (1.2-5.4) 12/08/20 04:51 [place] # (Auto) 0.3 K/mm3 (0.0-0.8) 12/08/20 04:51 Eos # (Auto) 0.3 K/mm3 (0.0-0.4) 12/08/20 04:51 Baso # (Auto) 0.1 K/mm3 (0.0-0.1) 12/08/20 04:51 Add Manual Diff Complete 12/07/20 04:22 Total Counted 100 12/07/20 04:22 Seg Neutrophils % 35.6 % (40.0-70.0) L 12/08/20 04:51 Seg Neuts % (Manual) 43.0 % (40.0-70.0) 12/07/20 04:22 Lymphocytes % (Manual) 43.0 % (13.4-35.0) H 12/07/20 04:22 Monocytes % (Manual) 3.0 % (0.0-7.3) 12/07/20 04:22 Eosinophils % (Manual) 11.0 % (0.0-4.3) H 12/07/20 04:22 Nucleated RBC % Not Reportable 12/07/20 04:22 Seg Neutrophils # 1.3 K/mm3 (1.8-7.7) L 12/08/20 04:51 Seg Neutrophils # Man 1.5 K/mm3 (1.8-7.7) L 12/07/20 04:22 Band Neutrophils # 0.0 K/mm3 12/07/20 04:22 Lymphocytes # (Manual) 1.5 K/mm3 (1.2-5.4) 12/07/20 04:22 Abs React Lymphs (Man) 0.0 K/mm3 12/07/20 04:22 Monocytes # (Manual) 0.1 K/mm3 (0.0-0.8) 12/07/20 04:22 Eosinophils # (Manual) 0.4 K/mm3 (0.0-0.4) 12/07/20 04:22 Basophils # (Manual) 0.0 K/mm3 (0.0-0.1) 12/07/20 04:22 Metamyelocytes # 0.0 K/mm3 12/07/20 04:22 Myelocytes # 0.0 K/mm3 12/07/20 04:22 Promyelocytes # 0.0 K/mm3 12/07/20 04:22 Blast Cells # 0.0 K/mm3 12/07/20 04:22 WBC Morphology Not Reportable 12/07/20 04:22 Hypersegmented Neuts Not Reportable 12/07/20 04:22 Hyposegmented Neuts Not Reportable 12/07/20 04:22 Hypogranular Neuts Not Reportable 12/07/20 04:22 Smudge Cells Not Reportable 12/07/20 04:22 Toxic Granulation Not Reportable 12/07/20 04:22 Toxic Vacuolation Not Reportable 12/07/20 04:22 Dohle Bodies Not Reportable 12/07/20 04:22 Pelger-Huet Anomaly Not Reportable 12/07/20 04:22 Jacky Rods Not Reportable 12/07/20 04:22 Platelet Estimate Consistent w auto 12/07/20 04:22 Clumped Platelets Not Reportable 12/07/20 04:22 Plt Clumps, EDTA Not Reportable 12/07/20 04:22 Large Platelets Not Reportable 12/07/20 04:22 Giant Platelets Not Reportable 12/07/20 04:22 Platelet Satelliting Not Reportable 12/07/20 04:22 Plt Morphology Comment Not Reportable 12/07/20 04:22 RBC Morphology Not Reportable 12/07/20 04:22 Dimorphic RBCs Not Reportable 12/07/20 04:22 Polychromasia Not Reportable 12/07/20 04:22 Hypochromasia Not Reportable 12/07/20 04:22 Poikilocytosis Not Reportable 12/07/20 04:22 Anisocytosis 1+ 12/07/20 04:22 Microcytosis Not Reportable 12/07/20 04:22 Macrocytosis Not Reportable 12/07/20 04:22 Spherocytes Not Reportable 12/07/20 04:22 Pappenheimer Bodies Not Reportable 12/07/20 04:22 Sickle Cells Not Reportable 12/07/20 04:22 Target Cells Not Reportable 12/07/20 04:22 Tear Drop Cells Not Reportable 12/07/20 04:22 Ovalocytes Not Reportable 12/07/20 04:22 Helmet Cells Not Reportable 12/07/20 04:22 [place] Bodies Not Reportable 12/07/20 04:22 [place] Rings Not Reportable 12/07/20 04:22 Dix Cells Not Reportable 12/07/20 04:22 Bite Cells Not Reportable 12/07/20 04:22 Crenated Cell Not Reportable 12/07/20 04:22 Elliptocytes Not Reportable 12/07/20 04:22 Acanthocytes (Spur) Not Reportable 12/07/20 04:22 Rouleaux Not Reportable 12/07/20 04:22 Hemoglobin C Crystals Not Reportable 12/07/20 04:22 Schistocytes Not Reportable 12/07/20 04:22 Malaria parasites Not Reportable 12/07/20 04:22 Jean-Claude Bodies Not Reportable 12/07/20 04:22 Hem Pathologist Commnt No 12/07/20 04:22 PT 13.8 Sec. (12.2-14.9) 12/06/20 04:43 INR 1.00 (0.87-1.13) 12/06/20 04:43 APTT 23.8 Sec. (24.2-36.6) L 12/05/20 21:42 Heparin Anti-Xa Level 0.10 U.I./ml (0.3-0.7) L 12/07/20 19:53 VBG pH 7.395 (7.320-7.420) 12/05/20 18:42 Sodium 137 mmol/L (137-145) 12/08/20 04:51 Potassium 3.7 mmol/L (3.6-5.0) 12/08/20 04:51 Chloride 101.7 mmol/L (98-107) 12/08/20 04:51 Carbon Dioxide 24 mmol/L (22-30) 12/08/20 04:51 Anion Gap 15 mmol/L 12/08/20 04:51 BUN 11 mg/dL (9-20) 12/08/20 04:51 Creatinine 0.8 mg/dL (0.8-1.3) 12/08/20 04:51 Estimated GFR > 60 ml/min 12/08/20 04:51 BUN/Creatinine Ratio 14 % 12/08/20 04:51 Glucose 184 mg/dL (75-100) H 12/08/20 04:51 POC Glucose 271 mg/dL (70-105) H 12/09/20 12:21 Calcium 9.2 mg/dL (8.4-10.2) 12/08/20 04:51 Total Bilirubin 0.40 mg/dL (0.1-1.2) 12/08/20 Unknown Direct Bilirubin < 0.2 mg/dL (0-0.2) 12/08/20 Unknown Indirect Bilirubin 0.2 mg/dL 12/08/20 Unknown AST 14 units/L (5-40) 12/08/20 Unknown ALT 20 units/L (7-56) 12/08/20 Unknown Alkaline Phosphatase 114 units/L (35-129) 12/08/20 Unknown Total Creatine Kinase 58 units/L (55-170) 12/05/20 18:42 CK-MB (CK-2) 2.3 ng/mL (0.0-4.0) 12/05/20 18:42 CK-MB (CK-2) Rel Index 3.9 (0-4) 12/05/20 18:42 Troponin T 0.081 ng/mL (0.00-0.029) H D 12/06/20 04:43 Total Protein 6.3 g/dL (6.3-8.2) 12/08/20 Unknown Albumin 3.0 g/dL (3.9-5) L 12/08/20 Unknown Albumin/Globulin Ratio 0.9 % 12/08/20 Unknown Triglycerides 97 mg/dL (2-149) 12/05/20 18:42 Cholesterol 213 mg/dL (50-199) H 12/05/20 18:42 LDL Cholesterol Direct 149 mg/dL (50-130) H 12/05/20 18:42 HDL Cholesterol 55 mg/dL (40-59) 12/05/20 18:42 Cholesterol/HDL Ratio 3.87 % 12/05/20 18:42 Lipase 28 units/L (13-60) 12/06/20 11:10 Urine Color Yellow (Yellow) 12/06/20 02:14 Urine Turbidity Clear (Clear) 12/06/20 02:14 Urine pH 7.0 (5.0-7.0) 12/06/20 02:14 Ur Specific [place] 1.023 (1.003-1.030) 12/06/20 02:14 Urine Protein 100 mg/dl mg/dL (Negative) 12/06/20 02:14 Urine Glucose (UA) Neg mg/dL (Negative) 12/06/20 02:14 Urine Ketones Neg mg/dL (Negative) 12/06/20 02:14 Urine Blood Neg (Negative) 12/06/20 02:14 Urine Nitrite Neg (Negative) 12/06/20 02:14 Urine Bilirubin Neg (Negative) 12/06/20 02:14 Urine Urobilinogen 4.0 mg/dL (<2.0) 12/06/20 02:14 Ur Leukocyte Esterase Neg (Negative) 12/06/20 02:14 Urine WBC (Auto) < 1.0 /HPF (0.0-6.0) 12/06/20 02:14 Urine RBC (Auto) 2.0 /HPF (0.0-6.0) 12/06/20 02:14 U Epithel Cells (Auto) < 1.0 /HPF (0-13.0) 12/06/20 02:14 Ramirez/IV: Voiding Method Urinal Active Medications - Current Medications Current Medications: Generic Name Dose Route Start Last Admin Trade Name Freq PRN Reason Stop Dose Admin Acetaminophen 650 mg 12/05/20 22:29 Acetaminophen 325 Mg Tab PO Q4H PRN Pain MILD(1-3)/Fever >100.5/AMBROCIO Aspirin 81 mg 12/08/20 10:00 12/09/20 10:22 Aspirin Ec 81 Mg Tab PO 81 mg QDAY BRITTANY Administration Atorvastatin Calcium 80 mg 12/07/20 22:00 12/08/20 21:46 Atorvastatin 40 Mg Tab PO 80 mg QHS BRITTANY Administration Dextrose 0 ml 12/05/20 22:29 Dextrose 50% In Water (25gm) 50 Ml Syringe IV Q30MIN PRN Hypoglycemia Protocol Enoxaparin Sodium 40 mg 12/07/20 22:00 12/09/20 10:22 Enoxaparin 40 Mg/0.4 Ml Inj SUB-Q 40 mg BID BRITTANY Administration Protocol Insulin Human Lispro 0 unit 12/08/20 16:30 12/09/20 13:07 Insulin Lispro 100 Unit/Ml SUB-Q 4 unit ACHS BRITTANY Administration Protocol Lisinopril 10 mg 12/07/20 15:00 12/09/20 10:22 Lisinopril 10 Mg Tab PO 10 mg QDAY BRITTANY Administration Magnesium Hydroxide 30 ml 12/05/20 22:29 Magnesium Hydroxide (Mom) Oral Liqd Udc PO Q4H PRN Constipation Metoprolol Tartrate 25 mg 12/06/20 10:00 12/09/20 10:22 Metoprolol Tartrate 25 Mg Tab PO 25 mg BID BRITTANY Administration Morphine Sulfate 2 mg 12/06/20 00:23 Morphine 2 Mg/1 Ml Inj IV Q5MIN PRN Chest Pain Nitroglycerin 0.4 mg 12/06/20 00:23 Nitroglycerin 0.4 Mg Tab Subl SL Q5M PRN Chest Pain Ondansetron HCl 4 mg 12/05/20 22:29 Ondansetron 4 Mg/2 Ml Inj IV Q8H PRN Nausea And Vomiting Sodium Chloride 10 ml 12/06/20 10:00 12/09/20 10:23 Sodium Chloride 0.9% 10 Ml Flush Syringe IV 10 ml BID BRITTANY Administration Sodium Chloride 10 ml 12/05/20 22:29 Sodium Chloride 0.9% 10 Ml Flush Syringe IV PRN PRN LINE FLUSH Spironolactone 25 mg 12/07/20 15:00 12/09/20 10:22 Spironolactone 25 Mg Tab PO 25 mg QDAY BRITTANY Administration Tramadol HCl 50 mg 12/06/20 00:23 12/07/20 11:25 Tramadol 50 Mg Tab PO 50 mg Q6H PRN Administration Pain, Moderate (4-6) Nutrition/Malnutrition Assess - Dietary Evaluation Nutrition/Malnutrition Findings: Nutrition Notes Start: 12/06/20 11:54 Freq: Status: Active Protocol: Document 12/08/20 15:49 CW (Rec: 12/08/20 15:53 CW [id number]) Nutrition Notes Initial or Follow up Reassessment Current Diagnosis Coronary Artery Disease, Diabetes,Hypertension, Hyperlipidemia Other Pertinent Diagnosis NSTEMI, R BKA Current Diet NPO Labs/Tests BG 184 Pertinent Medications sPIRONILACTONE Height 5 ft Weight 85 kg Usual Body Weight 90.9 kg [place] Body Weight (kg) 48.18 BMI 36.6 Intake Prior to Admission Fair Weight change and time frame weight change likely r/t fluid AEB need for diuretics Weight Status Obese Subjective/Other Information Pt reports having no questions related to previous diet education provided. Pt also reports only consuming 25% of lunch yesterday. Pt NPO at time d/t stress test this morning. Pt reports poor intake d/t dislike of meals. Pt could not provided any preferences at this time. Informed pt he could always ask for an alternative if he does not like the meal option provided. Burn Absent Trauma Absent GI Symptoms None Current % PO Poor (25-49%) Interpretation of Weight Loss (severe) >5% in 1 month #1 Nutrition Diagnosis Inadequate oral intake As Evidenced by Signs and Symptoms 25% intake of meals Diagnosis Progress(for reassessment Continues documentation) Is patient on ventilator? No Is Patient Ambulatory and/or Out of Bed No REE-([facility]-confined to bed) 1784.220 Kcal/Kg value to use for calculation 18 Approximate Energy Requirements Using 1530 kcal/Kg Calculation Used for Recommendations Kcal/kg Additional Notes Protein: (1-1.2g/kg AdjBW: 60kg) 60-73g Fluid: 1 ml/kcal Nutrition Intervention Change Diet Order: resume diet when medically feasible Add Supplement/Snack (indicate name/kcal Glucerna BID /protein ) Provides kCal: 440 Provides Protein (gm) 20 Goal #1 Meet at least 75% of energy and protein needs via PO and ONS Anticipated Discharge Needs: Cardiac, consistent CHO Follow-Up By: 12/10/20 Additional Comments F/U for intakes and ONS tolerance
--- NOTE | 2020-12-09 18:06 | Discharge Summary ---
Providers - Providers Date of Admission: 12/07/20 12:57 Date of discharge: 12/09/20 Attending physician: ISMAEL MIGUEL 12/05/20 21:38 Consult to Physician [CONS] Urgent Comment: Dr. Wallace spoke with Dr. Asif @ [id number] Consulting Provider: SEBASTIÁN ASIF Physician Instructions: Reason For Exam: Elevated troponin, epigastric pain 12/05/20 22:29 Consult to Dietitian/Nutrition [CONS] Routine Physician Instructions: Reason For Exam: Reason for Consult: Diet education 12/06/20 Consult to Cardiac Rehabilitation [CONS] Routine Reason For Exam: Phase I 12/06/20 02:50 Consult to Wound/ET Nurse [CONS] Routine Reason For Exam: wound eval- R bka with laura 12/07/20 13:41 Physical Therapy Evaluation and Treat [CONS] Urgent Comment: assess need for hospital bed Reason For Exam: PT to eval and treat 12/07/20 13:42 Occupational Therapy Evaluate and Treat [CONS] Urgent Comment: Reason For Exam: OT to eval and treat 12/08/20 07:59 Consult to Physician [CONS] Routine Comment: Consulting Provider: WILL ESPINOSA Physician Instructions: Reason For Exam: Elevated LFT Primary care physician: JULIO PHELPS MD Hospitalization Condition: Fair Hospital course: 65-year-old -[place]ish male with known history of coronary artery disease status post CABG in the past, hypertension, hyperlipidemia, diabetes mellitus presenting to the emergency room today complaining of epigastric abdominal pain which is sharp and burning in nature and has been ongoing for the past 24 hours. On a scale of 10 pain was about 8-9 over 10 in severity. He has had a some associated nausea and vomiting. Denies any fever or chills, no headache or dizziness, no diaphoresis. Denies any radiation and pain. No known relieving or exacerbating factor. Work-up in the emergency room today troponin was elevated at 0.048. EKG did not show any acute abnormality. CT of the abdomen reveals possible mild bibasilar pulmonary edema, no definite acute abnormality seen in the abdomen and pelvis. He was admitted.He was elavated by GI and had a negative workup. Stress test done did not show significant ischemia, so was discharged home. Patient soes not have NSTEMI, as per cardiology. Elevated Troponin Acute on chronic systolic heart failure. Coronary artery disease. Patient is s/p CABG 2006. Diabetes mellitus type 2 Hypertension Hyperlipidemia 12/06/2020. Patient with epigastric pain that may be anginal equivalent. CT scan of the abdomen pelvis negative. However, patient does have elevated troponin. Continue to follow serial cardiac isoenzymes. Stress test and echocardiogram ordered. Await cardiology evaluation. 12/07/2020. Cardiology opted for cardiac catheterization for ischemic evaluation this a.m. Echocardiogram reveals left ventricle moderately dilated with systolic function severely decreased. Mild concentric left ventricular hypertrophy. LVEF is 25 to 30%. Continue heparin drip. Continue aspirin and beta-delmi. Consider diuretics and ARB/HARISH per cardiology recommendations. 12/08/2020 Patient with elevated Troponin. He was evaluated by cardiology and he recommends GI workup because of elevated LFT. I ordered US liver and gallbladder and consulted GI. Liver and Gall bladder Ultrasound unremarkable. LFTs back to normal today. 12/09/2020 Patient with elevated Troponin. GI workup was negative, so stress test done by cardiology and did not show significant ischemia. Patient does not have NSTEMI. Ruled out. OK to discharge home from cardiology. PT had requested acute Rehab placement but patient states he wants to go home. Discharge order placed. Disposition: HOME / SELF CARE / HOMELESS Final Discharge Diagnosis (Prints w/discharge instructions): 1.Ischemic cardiomyopathy Time spent for discharge: 33 mins - Discharge Diagnoses (1) Acute abdominal pain Status: Acute (2) Coronary artery disease Status: Acute (3) Elevated troponin Status: Acute (4) Hyperlipidemia Status: Acute (5) Ischemic cardiomyopathy Status: Acute Core Measure Documentation - Palliative Care Palliative Care/ Comfort Measures: Not Applicable - Core Measures Any of the following diagnoses?: none Exam - Constitutional Vitals: Temp Pulse Resp BP Pulse Ox 98.1 F 77 18 142/73 98 12/09/20 16:01 12/09/20 16:01 12/09/20 16:01 12/09/20 16:01 12/09/20 16:01 Plan Activity: other (no strenous activity until cleared by cardiology) Diet: low fat, low cholesterol, low salt Plan of Treatment: 1.Follow up with PCP in 1 week 2.Follow up with Dr. Perez in 1 week 3.Continue Lantus for diabetes Follow up with: FLORENTIN ESPINO MD [Staff Physician] - 3-5 Days (Dr. Espino is a exercise planner. Please follow-up with him for further evaluation and for follow-up with your possible liver hemangioma seen on today's CAT scan) JULIO PHELPS MD [Primary Care Provider] - 3-5 Days Prescriptions: Spironolactone [Aldactone] 25 mg PO QDAY #30 tablet Aspirin EC [Halfprin EC] 81 mg PO QDAY #30 tablet AtorvaSTATin [Lipitor] 80 mg PO QHS #60 tablet Metoprolol [Lopressor TAB] 25 mg PO BID #60 tablet lisinopriL [Zestril TAB] 10 mg PO QDAY #30 tablet
[2020-12-10 04:28] VITALS: BP 140/63
--- NOTE | 2020-12-10 08:56 | Progress Note ---
Assessment and Plan Mildly elevated troponin LVEF 25-30% by echo. no reversible ischemia by MPI this admission. Hx of Ischemic cardiomyopathy Hx of CAD with remote CABG Epigastric and upper abdominal pain associated with nausea and vomiting. Elevated liver transaminases -resolved abdominal CT scan was negative. PVD s/p right below-knee amputation Continue medical therapy for dilated cardiomyopathy and coronary artery disease. Stable cardiac chowdhury for discharge. Will follow up in our office in 5-7 days. Subjective Date of service: 12/10/20 Interval history: No cardiac complaints. Discharge planning is in process. Objective Vital Signs Temp Pulse Resp BP Pulse Ox 12/10/20 04:03 98.7 F 80 18 140/63 95 12/09/20 23:23 99.4 F 106 H 18 118/63 98 12/09/20 23:00 98 12/09/20 22:49 82 12/09/20 19:23 97.9 F 82 16 138/74 99 12/09/20 16:01 98.1 F 77 18 142/73 98 12/09/20 12:11 97.6 F 71 18 131/68 98 12/09/20 11:57 18 97 12/09/20 11:00 86 - Physical Examination General: No Apparent Distress HEENT: Positive: PERRL Neck: Positive: neck supple Cardiac: Positive: Reg Rate and Rhythm Lungs: Positive: Decreased Breath Sounds Neuro: Positive: Grossly Intact Abdomen: Positive: Soft Skin: Positive: Clear Extremities: Present: Other (Status post right below-knee amputation). Absent: edema
== END 2020-12-10 08:40 | disposition home or self-care (01) | DRG 292 ==
LOC: ED 17:56 → 4A 22:29 → OBSVTOIN 12-07 12:57
PROVIDERS: ADMIT Internal Medicine Geriatric Medicine; ATTEND Internal Medicine
DX: I11.0 Hypertensive heart disease with heart failure (principal); I25.810 Atherosclerosis of coronary artery bypass graft(s) without angina pectoris; I50.23 Acute on chronic systolic (congestive) heart failure; I25.5 Ischemic cardiomyopathy; R77.8 Other specified abnormalities of plasma proteins; I20.8 Other forms of angina pectoris; E11.9 Type 2 diabetes mellitus without complications; E78.5 Hyperlipidemia, unspecified; R10.13 Epigastric pain; R74.01 Elevation of levels of liver transaminase levels; E78.00 Pure hypercholesterolemia, unspecified; Z95.1 Presence of aortocoronary bypass graft; Z89.511 Acquired absence of right leg below knee
CPT/HCPCS: 36415; 71045; 74177; 76705; 78452; 80048; 80053; 80061; 80076; 81001; 82550; 82553; 82805; 82962; 83690; 84484; 85007; 85014; 85018; 85025; 85049; 85520; 85610; 85730; 93005; 93017; 93306; 96361; 96374; G0378; A9270-GY; A9502; J1644; J1650; J1815; J2405; J2785; J3010; J7030; Q9967